=== PATIENT | male | born 1960 | race Caucasian/White ===

== ENCOUNTER 2018-06-26 15:02 | Emergency (ER) | payer BC ==
--- OUTSIDE RECORDS SUMMARY | 2018-06-26 18:05 | XMS REPORT ---
:1960 External Reference #:[id number] Author Organization [facility] Address [address] [place] [address] Phone [phone] Care Team Providers Name Role Phone Dipesh Mead MD Care Team Information Slip Laster Unavailable Dipesh Mead MD Primary Care Physician Unavailable Payers Type Date Identification Numbers Payment Provider Subscriber Commercial Effective: Policy Number: [id number] [place] Plan Bobby Jasso 2013 PayID: [id number] [address] [place] [address] Problems Date Description Provider Status Onset: 05/23/2012 Arthralgia of the ankle and/or foot Mando Montesinos M.D. Active Onset: 07/08/2011 Head and neck swelling Dipesh Mead M.D. Active Social History Type Date Description Comments Smoking Patient has never smoked Allergies, Adverse Reactions, Alerts Date Description Reaction Status Severity Comments 07/08/2011 NKDA active Medications Medication Date Status Form Strength Qnty SIG Indications Ordering Provider Augmentin 06/24 Active Tablets 500-125mg 30tab 1 by mouth R59.0 Rachel Velasquez /2017 s three Sregio EAR SPECIALIST times a day Diltiazem HCL ER 10/20 Active Caps ER 60mg 1 by mouth Dipesh Mitchell /2015 12HR chayo Becerra M.DVanessa daily Amlodipine 06/23 Active Tablets 10mg 1 by mouth [facility] every day [facility] Pradaxa 05/23 Active Capsules 150mg take 1 capsule by Medicine mouth 2 Associates times a [facility] day Metoprolol 05/23 Active Tablets 200mg 1 po qd Family Succinate ER ER 24HR [facility] Lisinopril 05/23 Active Tablets 40mg 1 po qd [facility] Furosemide 05/23 Active Tablets 20mg 1 po qd [facility] Klor-Con M20 Active Tablets 20Meq 1 by mouth Unknown /0000 ER every day Arthritis Pain Active Tablets 650mg 2 tablets Unknown Relief /0000 ER Am Fish Oil Active Capsules 1000mg take one Unknown /0000 capsule by mouth every day (heart health) Amoxicillin 02/03 Hx Tablets 500mg 20tab 1 by mouth Dipesh Mitchell /2017 s twice a Alyce - gabriela M.Karla 06/24 Doxycycline 08/08 Hx Tablets 100mg 2tabs take 2 Dipesh Mitchell Hymurali Pills Camron Mead Together M.Karla 09/23 Azithromycin 11/28 Hx Tablets 250mg 6tabs 2 by mouth x 1 then Anibal, - 1 by mouth Afnp-C 12/03 every x 4 more days Doxycycline 08/04 Hx Tablets 100mg 2tabs 2 by mouth E906.4 Avril murali x 1 dose Camron Ruiz-C 08/07 Amoxicillin 06/23 Hx Tablets 500mg 30tab 1 three 465.8 s times a Joseph - day x 10 Afnp-C Mouthwash/Gargle 09/08 Hx Liquid Dipesh Mitchell Camron Mead M.D. 10/20 Amoxicillin 08/30 Hx Tablets 500mg 14tab 1 po bid Dipesh Mitchell s Camron Mead M.D. 09/08 Work Excuse 05/27 Hx unable to Dipesh Mitchell work Camron Mead M.D. 08/30 can return Friday Amlodipine 05/23 Hx Tablets 5mg 1 / po [facility] qd [facility] 06/23 [facility] Indomethacin 05/23 Hx Capsules 25mg 30cap take one 719.47 Mando Escobar s capsule by Camron Montesinos M.Karla 08/30 times daily as needed for pain with food Cipro 03/07 Hx Tablets 500mg 14tab 1 po bid 787.91 Meghan s for 7 days Camron Ku 07/08 Work Note 03/07 Hx Bobby 787.91 was seen [place], Camron by nv [employer] 07/08 today illness and may not return to work until Friday, 6\\6\\ Topicort 08/14 Hx Cream 0.25% 30uni rub in Dipesh JVanessa ts sparingly Alyce, - bid prn M.D. 07/08 Off Work 2 Days. 10/02 Hx , 724.2 Jessica L. /200810/03/09 Camron Boone M.D. 08/14 dx: /2009 Low back Pain. Return on 10/04/09. Robitussin A-C 12/12 Hx 8Oz 1-2 tsp po 487.1 q4h prn Camron Ku cough [employer] 10/02 Motrin 02/16 Hx Tablets 600mg 90tab 1 po tid Dipesh Mitchell /2007 s with meals Camron Mead.Karla 10/02 Lomotil 09/09 Hx Tablets 2.5mg;0.0 50tab 1-2 po Dipesh Mitchell /2005 25 mg s q4hr prn Camron Mead Diarrhea M.DVanessa 03/17 No More /2006 Than 6 A Day Work Excuse 09/09 Hx unable to Dipesh Mitchell /2005 work Alyce - seen in M.D. 03/17 may return to work friday09/12/06 Ibuprofen 05/13 Hx Tablets 600mg 90tab 1 po q8 Radha s hours prn johnathon Savage, - with food M.D. 06/10 Out Of Work 05/13 Hx seen by MD Garcia /200505/13/06 for johnathon Savage, - work M.D. 09/09 related injury, needs to be out of work until 05/17/06 Work Note 12/17 Hx Patient Dipesh Mitchell /2005 Has Flat Alyce - Feet Needs M.D. 01/31 Good Arch Support With Sneakers AT Work Amoxicillin 12/17 Hx Capsules 250mg 30cap 1 PO tid Dipesh Mitchell /2005 Camron Vee M.D. 01/31 Hydrochlorothiazi 09/26 Hx 25mg 30uni 1 po qd Dipesh puentes Camron Ochoa M.D. 05/23 Hydrochlorothiazi 10/18 Hx 12.5mg 30uni 1 po qd Dipesh puentes Camron Ochoa M.D. 09/26 Clarinex 10/18 Hx 5mg 30uni 1 qd prn Radha Camron Muhammad M.D. 07/08 Nasonex 04/23 Hx 50mcg 1unit 2 sprays s Camron Torres nostril qd Afmeera-C 05/13 Out Of Work Until 03/18 Hx Out Of Work [place], - 6\\8\\02 And [employer]ER 05/04 6\\9\\02 Due To Illness. Return To Work 03/16 Hx Was Seen In This Camron Ruiz [facility] Essie-C 03/17 Today ;February Return To Work Work Excuse 09/15 Hx Unable To Dipesh Mitchell /2000 Work From Alyce - 09/14/01 Mera 05/04 Thr09/16/01 Due Ao Medical Reasons Celebrex 08/14 Hx Tabs 100mg 0tabs 1 po bid prn [facility] 09/26 Of Ventolin 04/17 Hx 1unit 2 Puffs Dipesh Mitchell /1997 s Camron Rodrigues M.D. 08/14 Vancenase Aq DS 03/27 Hx 1unit 2 [place] qd Dipesh Mitchell /1997 s Camron Odom M.D. 08/14 Norvasc 11/02 Hx 10mg 30uni 1 po qd Dipesh Mitchell /1997 Camron Ochoa M.D. 05/23 Ludy 05/24 Hx 60mg 60uni 1 po bid Dipesh Mitchell /1996 Camron Harris M.D. 10/18 Beneflex Hx 1 qd Unknown /0000 - 08/08 Medications Administered in Office Medication Date Status Form Strength Qnty SIG Indications Ordering Provider Injection 11/08/ Administered Injection Sam Mitchell Subcutaneous Or Mario Ayala M.D. Immunizations CPT Code Status Date Vaccine Lot # [id number] Given 08/08/2017 Influenza Vac, Quadrivalent, Slit Virus, Im [id number] Given 06/10/2007 Tetanus And Diptheria Adult Preservative Free [id number] >[id number] Vital Signs Date Vital Result Comment 06/26/2018 BP Systolic 122 mmHg BP Diastolic 80 mmHg Heart Rate 72 /min Body Temperature 97.7 F Height 72.5 inches 6'0.50" 06/24/2018 BP Systolic 142 mmHg BP Diastolic 80 mmHg Heart Rate 60 /min Body Temperature 97.9 F Respiratory Rate 16 /min Height 72.5 inches 6'0.50" Weight 199.00 lb BMI (Body Mass Index) 26.6 kg/m2 02/03/2018 BP Systolic 140 mmHg BP Diastolic 88 mmHg Heart Rate 84 /min Body Temperature 97.3 F Height 72.5 inches 6'0.50" Weight 195.00 lb BMI (Body Mass Index) 26.1 kg/m2 09/23/2017 BP Systolic 132 mmHg BP Diastolic 80 mmHg Heart Rate 68 /min Body Temperature 97.9 F Height 72.5 inches 6'0.50" Weight 197.00 lb BMI (Body Mass Index) 26.3 kg/m2 08/08/2017 BP Systolic 120 mmHg BP Diastolic 80 mmHg Heart Rate 56 /min Body Temperature 97.9 F Height 72.5 inches 6'0.50" Weight 199.00 lb BMI (Body Mass Index) 26.6 kg/m2 10/20/2015 BP Systolic 122 mmHg BP Diastolic 64 mmHg Heart Rate 70 /min Body Temperature 97.9 F Respiratory Rate 18 /min Height 72.5 inches 6'0.50" Weight 212.00 lb BMI (Body Mass Index) 28.4 kg/m2 11/28/2014 BP Systolic 110 mmHg BP Diastolic 80 mmHg Heart Rate 68 /min irr Body Temperature 98.5 F Respiratory Rate 18 /min Height 72.5 inches 6'0.50" Weight 212.00 lb BMI (Body Mass Index) 28.4 kg/m2 08/18/2014 BP Systolic 124 mmHg BP Diastolic 92 mmHg Heart Rate 68 /min irr Body Temperature 97.5 F Respiratory Rate 16 /min Height 72.5 inches 6'0.50" Weight 212.00 lb BMI (Body Mass Index) 28.4 kg/m2 08/04/2014 BP Systolic 110 mmHg BP Diastolic 80 mmHg Heart Rate 80 /min Body Temperature 97.9 F Respiratory Rate 16 /min Height 72.5 inches 6'0.50" Weight 212.00 lb BMI (Body Mass Index) 28.4 kg/m2 06/23/2014 BP Systolic 110 mmHg BP Diastolic 80 mmHg Heart Rate 64 /min Body Temperature 98.1 F Respiratory Rate 18 /min Height 72.5 inches 6'0.50" Weight 216.00 lb BMI (Body Mass Index) 28.9 kg/m2 09/08/2013 BP Systolic 122 mmHg BP Diastolic 80 mmHg Heart Rate 70 /min Body Temperature 98.5 F Respiratory Rate 18 /min Height 72.5 inches 6'0.50" Weight 220.00 lb BMI (Body Mass Index) 29.4 kg/m2 08/30/2013 BP Systolic 126 mmHg BP Diastolic 80 mmHg Heart Rate 68 /min Body Temperature 99.7 F Respiratory Rate 18 /min Height 72.5 inches 6'0.50" Weight 222.00 lb BMI (Body Mass Index) 29.7 kg/m2 05/27/2012 BP Systolic 160 mmHg BP Diastolic 100 mmHg Heart Rate 68 /min Body Temperature 97.5 F Height 72.5 inches 6'0.50" Weight 215.00 lb BMI (Body Mass Index) 28.8 kg/m2 05/23/2012 BP Systolic 144 mmHg BP Diastolic 88 mmHg Heart Rate 72 /min Body Temperature 97.8 F Respiratory Rate 16 /min Height 72.5 inches 6'0.50" Weight 216.00 lb BMI (Body Mass Index) 28.9 kg/m2 07/08/2011 BP Systolic 118 mmHg BP Diastolic 70 mmHg Heart Rate 68 /min Body Temperature 98.0 F Height 72.5 inches 6'0.50" Weight 224.00 lb BMI (Body Mass Index) 30.0 kg/m2 03/07/2011 BP Systolic 124 mmHg BP Diastolic 80 mmHg Heart Rate 76 /min Body Temperature 97.9 F Height 72.5 inches 6'0.50" Weight 221.00 lb BMI (Body Mass Index) 29.6 kg/m2 08/14/2010 BP Systolic 142 mmHg BP Diastolic 94 mmHg Heart Rate 88 /min Height 72.5 inches 6'0.50" Weight 229.00 lb BMI (Body Mass Index) 30.6 kg/m2 10/02/2009 BP Systolic 160 mmHg BP Diastolic 90 mmHg Heart Rate 88 /min Weight 225.00 lb 12/19/2008 BP Systolic 120 mmHg BP Diastolic 80 mmHg Heart Rate 80 /min Body Temperature 98.2 F Weight 225.00 lb 12/15/2008 BP Systolic 142 mmHg BP Diastolic 80 mmHg Heart Rate 80 /min Body Temperature 98.3 F Weight 228.00 lb 12/12/2008 BP Systolic 138 mmHg BP Diastolic 80 mmHg Heart Rate 88 /min Body Temperature 100.4 F Weight 228.00 lb 02/17/2008 BP Systolic 126 mmHg BP Diastolic 80 mmHg Heart Rate 84 /min Height 72.5 inches 6'0.50" Weight 222.00 lb BMI (Body Mass Index) 29.7 kg/m2 06/10/2007 BP Systolic 136 mmHg BP Diastolic 80 mmHg Heart Rate 64 /min Height 72.5 inches 6'0.50" Weight 223.00 lb BMI (Body Mass Index) 29.8 kg/m2 09/09/2006 BP Systolic 128 mmHg BP Diastolic 86 mmHg Heart Rate 84 /min Body Temperature 98.4 F Height 72.5 inches 6'0.50" Weight 222.00 lb BMI (Body Mass Index) 29.7 kg/m2 06/25/2006 BP Systolic 128 mmHg BP Diastolic 86 mmHg Heart Rate 84 /min Height 72.5 inches 6'0.50" Weight 227.00 lb BMI (Body Mass Index) 30.4 kg/m2 06/04/2006 BP Systolic 140 mmHg BP Diastolic 82 mmHg Heart Rate 72 /min Height 72.5 inches 6'0.50" Weight 227.00 lb BMI (Body Mass Index) 30.4 kg/m2 05/13/2006 BP Systolic 154 mmHg BP Diastolic 88 mmHg Heart Rate 80 /min Height 72.5 inches 6'0.50" Weight 227.00 lb BMI (Body Mass Index) 30.4 kg/m2 12/17/2005 BP Systolic 140 mmHg BP Diastolic 88 mmHg Heart Rate 82 /min Height 72.5 inches 6'0.50" Weight 220.00 lb BMI (Body Mass Index) 29.4 kg/m2 05/02/2005 BP Systolic 130 mmHg BP Diastolic 76 mmHg Heart Rate 79 /min Body Temperature 99.0 F Height 72.5 inches 6'0.50" Weight 228.00 lb BMI (Body Mass Index) 30.5 kg/m2 01/02/2005 BP Systolic 130 mmHg BP Diastolic 88 mmHg Heart Rate 76 /min Height 72.5 inches 6'0.50" Weight 231.00 lb BMI (Body Mass Index) 30.9 kg/m2 11/07/2004 BP Systolic 140 mmHg BP Diastolic 96 mmHg Heart Rate 76 /min Height 72.5 inches 6'0.50" Weight 227.00 lb BMI (Body Mass Index) 30.4 kg/m2 09/26/2004 BP Systolic 140 mmHg BP Diastolic 82 mmHg Heart Rate 92 /min Height 72.5 inches 6'0.50" Weight 230.00 lb BMI (Body Mass Index) 30.8 kg/m2 10/18/2003 BP Systolic 142 mmHg BP Diastolic 88 mmHg Heart Rate 72 /min Height 72.5 inches 6'0.50" Weight 221.00 lb BMI (Body Mass Index) 29.6 kg/m2 11/08/2002 BP Systolic 124 mmHg BP Diastolic 70 mmHg Heart Rate 103.1 /min Respiratory Rate 88 /min Height 72.5 inches 6'0.50" Weight 222.00 lb BMI (Body Mass Index) 30.1 kg/m2 07/14/2002 BP Systolic 136 mmHg BP Diastolic 80 mmHg Heart Rate 72 /min Body Temperature 98.3 F Height 72.5 inches 6'0.50" Weight 228.00 lb BMI (Body Mass Index) 30.9 kg/m2 Right Visual Acuity Distance 20/20 Left Visual Acuity Distance 20/20 05/04/2002 BP Systolic 120 mmHg LG Cuff BP Diastolic 80 mmHg LG Cuff Heart Rate 72 /min Height 72.5 inches 6'0.50" Weight 226.00 lb BMI (Body Mass Index) 30.6 kg/m2 03/16/2002 BP Systolic 140 mmHg BP Diastolic 88 mmHg Heart Rate 80 /min Body Temperature 98.7 F Height 72.5 inches 6'0.50" Weight 221.00 lb BMI (Body Mass Index) 30.0 kg/m2 08/14/2001 BP Systolic 126 mmHg LG Cuff BP Diastolic 80 mmHg LG Cuff Heart Rate 76 /min Height 72.5 inches 6'0.50" Weight 231.50 lb BMI (Body Mass Index) 31.4 kg/m2 12/23/2000 BP Systolic 148 mmHg BP Diastolic 88 mmHg Heart Rate 80 /min Body Temperature 99.5 F Height 72.5 inches 6'0.50" Weight 216.50 lb BMI (Body Mass Index) 29.4 kg/m2 06/18/2000 BP Systolic 136 mmHg BP Diastolic 90 mmHg Heart Rate 80 /min Body Temperature 96.6 F Height 72.5 inches 6'0.50" Weight 220.00 lb BMI (Body Mass Index) 29.8 kg/m2 Right Visual Acuity Distance 20/20 Left Visual Acuity Distance 20/20 12/03/1999 BP Systolic 130 mmHg LG Cuff BP Diastolic 90 mmHg LG Cuff Height 72 inches 6'0" Weight 226.00 lb BMI (Body Mass Index) 30.6 kg/m2 06/26/1999 BP Systolic 118 mmHg LG Cuff BP Diastolic 90 mmHg LG Cuff Height 72 inches 6'0" 05/19/1999 BP Systolic 140 mmHg BP Diastolic 92 mmHg Height 72 inches 6'0" Weight 220.00 lb 05/08/1999 BP Systolic 136 mmHg LG Cuff BP Diastolic 90 mmHg LG Cuff Height 72 inches 6'0" Weight 217.00 lb 04/17/1998 BP Systolic 132 mmHg LG Cuff BP Diastolic 90 mmHg LG Cuff Body Temperature 97.8 F Height 72 inches 6'0" Weight 214.00 lb Results Test Date Test Result H/L Range Note Laboratory test finding 01/16/2018 PSA Screening 0.785 ng/mL 0-4.0 1 Laboratory test finding 12/29/2017 Surgical Pathology SEE RESULT BELOW 2 Metabolic Panel (14), 09/23/2017 Glucose, Serum 67 mg/dL 65-99 3 Comprehensive BUN 25 mg/dL High 6-24 3 Creatinine, Serum 1.37 mg/dL High 0.76-1.27 3 eGFR If NonAfricn Am 57 mL/min/1.73 Low >59 3 eGFR If Africn Am 66 mL/min/1.73 >59 3 BUN/Creatinine Ratio 18 9-20 3 Sodium, Serum 141 mmol/L 134-144 3 Potassium, Serum 4.2 mmol/L 3.5-5.2 3 Chloride, Serum 102 mmol/L 96-106 3 Carbon Dioxide, Total 24 mmol/L 18-29 3 Calcium, Serum 8.8 mg/dL 8.7-10.2 3 Protein, Total, Serum 6.7 g/dL 6.0-8.5 3 Albumin, Serum 4.3 g/dL 3.5-5.5 3 Globulin, Total 2.4 g/dL 1.5-4.5 3 A/G Ratio 1.8 1.2-2.2 3 Bilirubin, Total 0.2 mg/dL 0.0-1.2 3 Alkaline Phosphatase, S 97 IU/L 39-117 3 Ast (Sgot) 26 IU/L 0-40 3 Alt (SGPT) 28 IU/L 0-44 3 CBC Electronic ([facility]) 09/23/2017 WBC 3.4 Low 3.6-9.6 RBC 4.88 3.90-5.70 Hemoglobin (Fma/CMC/CTX) 14.6 g/dL 12.1 - 17.2 Hematocrit (Fma/CMC/CTX) 43.1 % 36.1 - 50.3 Platelets 175 10^3/ul 150-400 Lymph% 21.3 % 17.0-48.0 Mixed% 4.7 Neutrophils % 74.0 Mean Corpuscular Vol 88 82.2-97.4 Mean Corpuscular Hemoglobin 29.9 27.6-33.3 Mean Corpuscular Hemo Concen 33.9 32.0-36.0 RDW 14.4 High 11.6-13.7 Mean Platelet Volume 7.7 5.5-11.0 Basic Metabolic Panel 05/05/2017 Sodium 138 mmol/L 133-145 Potassium 4.4 mmol/L 3.5-5.0 Chloride 108 mmol/L 101-111 Co2 Carbon Dioxide 27 mmol/L 22-32 Anion Gap 3 mmol/L 2-11 Glucose 86 mg/dL 70-100 Blood Urea Nitrogen 18 mg/dL 6-24 Creatinine 1.01 mg/dL 0.67-1.17 BUN/Creatinine Ratio 17.8 8-20 Calcium 9.4 mg/dL 8.6-10.3 Egfr Non- 76.4 >60 Egfr 98.3 >60 4 Laboratory test finding 01/08/2017 PSA Screening 0.957 ng/mL 0-4.0 5 Basic Metabolic Panel 03/14/2014 Sodium 137 mmol/L 133-145 Potassium 3.8 mmol/L 3.7-5.6 Chloride 104 mmol/L 101-111 Co2 Carbon Dioxide 29 mmol/L 22-32 Anion Gap 4 mmol/L 2-11 Glucose 91 mg/dL 70-100 Blood Urea Nitrogen 15 mg/dL 6-24 Creatinine 0.91 mg/dL 0.67-1.17 BUN/Creatinine Ratio 16.5 8-20 Calcium 9.1 mg/dL 8.6-10.3 Egfr Non- 87.2 >60 Egfr 112.1 >60 6 Laboratory test finding 12/09/2013 PSA Diagnostic 0.869 ng/mL 0-4.0 7 Laboratory test finding 08/30/2013 Quickstrep neg Negative CBC No Diff 12/16/2012 White Blood Count 5.4 10^3/uL 4.8-10.8 Red Blood Count 5.25 10^6/uL 4.0-5.4 Hemoglobin 15.4 g/dL 14.0-18.0 Hematocrit 46 % 42-52 Mean Corpuscular Volume 87 fL 80-94 Mean Corpuscular Hemoglobin 29 pg 27-31 Mean Corpuscular HGB Conc 34 g/dL 31-36 Red Cell Distribution Width 14 % 10.5-15 Platelet Count 207 10^3/uL 150-450 Mean Platelet Volume 8 um3 7.4-10.4 Basic Metabolic Panel 12/16/2012 Sodium 143 mmol/L 133-145 Potassium 3.9 mmol/L 3.5-5.0 Chloride 106 mmol/L 101-111 Co2 Carbon Dioxide 25.0 mmol/L 22-32 Anion Gap 12.0 mmol/L High 2-11 Glucose 92 mg/dL 70-100 Blood Urea Nitrogen 12 mg/dL 6-24 Creatinine 0.90 mg/dL 0.50-1.40 BUN/Creatinine Ratio 13.3 8-20 Calcium 9.7 mg/dL 8.1-9.9 Egfr Non- 88.6 >60 Egfr 114.0 >60 8 Laboratory test finding 12/16/2012 Magnesium 2.4 mg/dL 1.7-2.6 TSH (Thyroid Stimulating Horm) 1.28 miu/mL 0.34-5.60 Uric Acid 24 HR Urine 05/25/2012 Uric Acid, 24 HR 708.4 mg/24hrs 250.0- 750.0 9 Urine Total Volume, 24 Hour 2300 ml/24hrs 9 Laboratory test finding 05/23/2012 Uric Acid 6.2 mg/dL 2.5-9.2 CBC Electronic (Fma) 05/23/2012 WBC 5.0 3.6-9.6 RBC 4.93 3.90-5.70 Hemoglobin (Fma/CMC/CTX) 13.7 g/dL 12.1 - 17.2 Hematocrit (Fma/CMC/CTX) 42.9 % 36.1 - 50.3 Platelets 242 10^3/ul 150-400 Lymph% 11.9 Low 20.5-51.1 Mixed% 3.5 Neutrophils % 84.6 Mean Corpuscular Vol 87 82.2-97.4 Mean Corpuscular Hemoglobin 27.7 27.6-33.3 Mean Corpuscular Hemo Concen 32.0 32.0-36.0 RDW 14.0 High 11.6-13.7 Mean Platelet Volume 7.1 6.5-11.0 Laboratory test finding 05/23/2012 Sed Rate (Fma/CMC/Centrex) 4 mm Basic Metabolic Panel 10/08/2011 Sodium 138 mmol/L 135-145 Potassium 4.1 mmol/L 3.5-5.0 Chloride 105 mmol/L 101-111 Co2 (Carbon Dioxide) 28.0 mmol/L 22-32 Anion Gap 5.0 mmol/L 2-11 10 Glucose 101 mg/dL High 70-100 BUN 17 mg/dL 6-24 Creatinine 1.0 mg/dL 0.50-1.40 One Over Creatinine 1.00 BUN/Creatinine Ratio 17.0 8-20 Calcium 9.2 mg/dL 8.1-9.9 eGFR Non- 78.8 > 60 eGFR 101.3 > 60 11 Basic Metabolic Panel 09/16/2011 Sodium 136 mmol/L 135-145 12 Potassium 3.9 mmol/L 3.5-5.0 12 Chloride 104 mmol/L 101-111 12 Co2 (Carbon Dioxide) 28.0 mmol/L 22-32 12 Anion Gap 4.0 mmol/L 2-11 12, 13 Glucose 114 mg/dL High 70-100 12 BUN 22 mg/dL 6-24 12 Creatinine 1.2 mg/dL 0.50-1.40 12 One Over Creatinine 0.83 12 BUN/Creatinine Ratio 18.3 8-20 12 Calcium 8.9 mg/dL 8.1-9.9 12 eGFR Non- 64.1 > 60 12 eGFR 82.4 > 60 12, 14 MRSA/Vre Screen 09/11/2011 M <SEE 15 NOTE> CBC No Diff 09/11/2011 White Blood 12.7 CUMM High 4.8-10.8 Count Red Cell Count 4.99 CUMM 4.6-6.2 Hemoglobin 14.4 g/dL 14.0-18.0 Hematocrit 43 % 42-52 Mean Corpuscular Volume 86 um3 80-94 Mean Corpuscular Hemoglob 29 pg 27-31 Mean Corpuscular HGB Cone 34 g/dL 32-36 Redcell Distribution WDTH 15 % 10.5-15 Platelet Count 221 CUMM 150-450 Mean Platelet Volume 9.2 um3 7.4-10.4 Basic Metabolic Panel 09/11/2011 Sodium 140 mmol/L 135-145 Potassium 3.9 mmol/L 3.5-5.0 Chloride 110 mmol/L 101-111 Co2 (Carbon Dioxide) 21.0 mmol/L Low 22-32 Anion Gap 9.0 mmol/L 2-11 16 Glucose 107 mg/dL High 70-100 BUN 16 mg/dL 6-24 Creatinine 1.0 mg/dL 0.50-1.40 One Over Creatinine 1.00 BUN/Creatinine Ratio 16.0 8-20 Calcium 8.9 mg/dL 8.1-9.9 eGFR Non- 79.1 > 60 eGFR 101.7 > 60 17 Laboratory test finding 09/11/2011 Magnesium 2.2 mg/dL 1.7-2.6 Troponin-I 0.02 NG/ML 0-0.06 18 TSH 1.44 MIU/ML 0.34-5.60 Urinalysis 06/26/2011 Ua Color YELLOW Yellow Appearance-Urine CLEAR Clear Specific [place]-Ur 1.009 Low 1.010-1.030 Esterase-Urine NEGATIVE Negative Nitrite NEGATIVE Negative [id number] NEGATIVE Negative Protein-Urine NEGATIVE Negative PH-Urine 5.5 5-9 Blood-Urine NEGATIVE Negative Ketones-Urine NEGATIVE Negative Bilirubin-Ur NEGATIVE Negative Glucose-Urine NEGATIVE Negative Egfr (Calculated) 08/15/2010 Estimated GFR (CALCULATED) 19 Egfr >60 19, 20 Egfr, -[place] >60 19, 21 Lipid Panel 08/15/2010 Cholesterol, Total 177 mg/dL <200 19 Triglycerides 97 mg/dL <150 19 HDL Cholesterol 30 mg/dL Low 40-60 19 Chol/HDL Cholesterol 5.9 19, 22 LDL Cholesterol, Calc. 128 mg/dL 19, 23 LDL/HDL Cholesterol 4.3 19, 24 Comprehensive Metabolic 08/15/2010 Glucose 98 mg/dL 70-100 19 BUN 27 mg/dL High 5-21 19 Creatinine, Serum 0.91 mg/dL 0.60-1.30 19 Sodium 138 mmol/L 136-146 19 Potassium 4.0 mmol/L 3.5-5.3 19 Chloride 105 mmol/L 98-110 19 Carbon Dioxide 28 mmol/L 20-32 19 Albumin 4.6 g/dL 3.5-4.7 19 Protein, Total 7.2 g/dL 6.4-8.3 19 Calcium 9.4 mg/dL 8.4-10.4 19 Alkaline Phosphatase 94 U/L 10-118 19 Sgot (Ast) 17 U/L 3-40 19 SGPT (Alt) 21 U/L 7-50 19 Bilirubin, Total 0.50 mg/dL 0.30-1.20 19 Laboratory test finding 12/12/2008 Flu A&B POSITIVE Negative CBC 06/17/2007 WBC 4.1 x103 Low 4.3-10.9 25 RBC 5.24 x106 4.70-6.20 25 Hemoglobin 15.0 g/dL 13.0-17.0 25 Hematocrit 44.7 % 39.0-50.0 25 MCV 85.3 fl 82.0-98.0 25 MCH 28.6 pg 27.5-33.5 25 MCHC 33.6 g/dL 25 RDW 14.3 % 11.5-14.5 25 Platelet Count 225 x103 130-400 25 MPV 11.1 fl High 6.5-10.5 25 Segmented Neutrophils 71.4 % 44.0-74.0 25 Lymphocytes 17.2 % 15.0-45.0 25 Monocytes 8.4 % 2.0-13.0 25 Eosinophils 2.5 % 0.0-6.0 25 Basophils 0.5 % 0.0-2.0 25 Neutrophil Absolute 2.9 x103 1.4-7.0 25 Lymphocytes Absolute 0.7 x103 Low 1.0-3.4 25 Monocyte Absolute 0.3 x103 0.2-1.0 25 Eosinophil Absolute 0.1 x103 0.0-0.5 25 Basophil Absolute 0.0 x103 0.0-0.2 25 [facility] Metabolic 06/17/2007 Glucose 98 mg/dL 70-100 25 BUN 17 mg/dL 5-21 25 Creatinine, Serum 1.0 mg/dL 0.6-1.5 25 Sodium 142 mmol/L 136-146 25 Potassium 3.8 mmol/L 3.5-5.3 25 Chloride 106 mmol/L 98-110 25 Carbon Dioxide 27 mmol/L 20-32 25 Albumin 4.6 g/dL 3.5-4.7 25 Protein, Total 7.3 g/dL 6.4-8.2 25 Calcium 9.4 mg/dL 8.4-10.4 25 Alkaline Phosphatase 93 U/L 10-118 25 Sgot (Ast) 17 U/L 3-40 25 SGPT (Alt) 20 U/L 7-50 25 Bilirubin, Total 0.40 mg/dL 0.30-1.20 25 Lipid Profile 06/17/2007 Cholesterol, Total 179 mg/dL 120-200 25, 26 HDL Cholesterol 30 mg/dL Low 40-60 25 LDL Cholesterol, Calc. 127 mg/dL <130 25, 27 Triglycerides 110 mg/dL 25, 28 LDL/HDL Cholesterol 4.2 25, 29 Chol/HDL Cholesterol 6.0 25, 30 Laboratory test finding 06/17/2007 GFR (Calculated) >60 25, 31 Ua - Non Micro (Fma) 06/10/2007 Appearance CLEAR Color YELLOW Glucose, Urine (Fma/CMC/CTX) NEG Bilirubin NEG Ketones TRACE SP Grav >=1.030 Blood NEG PH 5.0 Protein SSA NEG Urobil 0.2 Nitrite NEG Leukocytes (Fma/CMC/Centrex) NEG Comprehensive Metabolic 12/26/2005 Glucose 92 mg/dL 70-100 32 BUN 21 mg/dL 5-21 32 Creatinine, Serum 1.0 mg/dL 0.6-1.5 32 Sodium 142 mmol/L 136-146 32 Potassium 4.8 mmol/L 3.5-5.3 32 Chloride 108 mmol/L 98-110 32 Carbon Dioxide 29 mmol/L 20-32 32 Albumin 4.5 g/dL 3.5-4.7 32 Protein, Total 7.1 g/dL 6.4-8.2 32 Calcium 9.4 mg/dL 8.4-10.4 32 Alkaline Phosphatase 102 U/L 10-118 32 Sgot (Ast) 16 U/L 3-30 32 SGPT (Alt) 20 U/L 7-40 32 Bilirubin, Total 0.49 mg/dL 0.30-1.20 32 Lipid Profile 12/26/2005 Cholesterol, Total 157 mg/dL 120-200 32, 33 HDL Cholesterol 26 mg/dL Low 40-60 32 LDL Cholesterol, Calc. 111 mg/dL <130 32, 34 Triglycerides 102 mg/dL 32, 35 LDL/HDL Cholesterol 4.3 32, 36 Chol/HDL Cholesterol 6.0 32, 37 Laboratory test finding 12/26/2005 PSA 1.1 ng/ml 0.0-4.0 32, 38 CBC 12/26/2005 WBC 5.1 x103 4.3-10.9 32 RBC 4.93 x106 4.20-5.60 32 Hemoglobin 14.3 g/dL 13.0-17.0 32 Hematocrit 41.3 % 39.0-50.0 32 MCV 83.8 fl 82.0-98.0 32 MCH 28.9 pg 27.5-33.5 32 MCHC 34.5 g/dL 32.0-36.0 32 RDW 14.5 % 11.5-14.5 32 Platelet Count 253 x103 130-400 32 MPV 8.5 fl 6.5-10.5 32 Segmented Neutrophils 76.9 % High 44.0-74.0 32 Lymphocytes 13.9 % Low 15.0-45.0 32 Monocytes 6.8 % 2.0-13.0 32 Eosinophils 2.2 % 0.0-6.0 32 Basophils 0.2 % 0.0-2.0 32 Neutrophil Absolute 3.9 x103 1.4-7.0 32 Lymphocytes Absolute 0.7 x103 Low 1.0-3.4 32 Monocyte Absolute 0.3 x103 0.2-1.0 32 Eosinophil Absolute 0.1 x103 0.0-0.5 32 Basophil Absolute 0.0 x103 0.0-0.2 32 Laboratory test finding 12/26/2005 GFR (Calculated) >60 32, 39 Ua - Non Micro (Fma) 12/17/2005 Appearance CLEAR Color LT YELLOW Glucose NEG Bilirubin NEG Ketones NEG SP Grav 1.020 Blood NEG PH 5.0 Protein NEG Urobil 0.2 Nitrite NEG Leukocytes NEG Laboratory test finding 05/03/2005 [facility] [place] Labs BASIC MET PANEL See Image Report Comprehensive Metabolic 01/09/2005 Glucose 91 mg/dL 61-110 BUN 21 mg/dL 5-21 Creatinine, Serum 1.1 mg/dL 0.6-1.5 Sodium 144 mmol/L 136-146 Potassium 4.1 mmol/L 3.5-5.3 Chloride 107 mmol/L 98-107 Carbon Dioxide 27 mmol/L 20-32 Albumin 4.5 g/dL 3.5-4.7 Protein, Total 7.2 g/dL 6.4-8.2 Calcium 9.9 mg/dL 8.4-10.6 Alkaline Phosphatase 93 U/L 10-118 Sgot (Ast) 16 U/L 3-30 SGPT (Alt) 18 U/L 7-40 Bilirubin, Total 0.58 mg/dL 0.30-1.20 Lipid Profile 01/09/2005 Cholesterol, Total 174 mg/dL 120-200 40 HDL Cholesterol 30 mg/dL Low 40-60 LDL Cholesterol, Calc. 115 mg/dL <130 41 Triglycerides 146 mg/dL 42 LDL/HDL Cholesterol 3.8 43 Chol/HDL Cholesterol 5.8 44 Laboratory test finding 01/09/2005 GFR (Calculated) >60 45 Ua - Non Micro ([facility]) 11/08/2002 Appearance HAZY DK. YELLOW 46 Glucose - 46 Bilirubin - 46 Ketones TRACE 46 SP Grav 1.025 46 Blood LARGE 46 PH 5.0 46 Protein SSA 1+ 46 Urobil 0.2 46 Nitrite POSITIVE 46 Leukocytes SMALL 46 Ua - Non Micro ([facility]) 07/14/2002 Appearance CLEAR YELLOW Glucose NEGATIVE Bilirubin NEGATIVE Ketones TRACE SP Grav >=1.030 Blood NEGATIVE PH 5.5 Protein NEGATIVE Urobil 0.2 Nitrite NEGATIVE Leukocytes NEGATIVE Basic Metabolic ([facility] [place]) 06/09/2002 Sodium 140 mmol/L 135-145 Potassium 4.0 3.5-5.0 Chloride 103 mmol/L 95-108 Co2 22.9 21-33 Glucose 104 mg/dL 70-105 BUN 17 6-22 Creatinine 1.4 mg/dL 0.5-1.4 BUN/Creatinin Ratio 12.1 8-20 Calcium 9.2 mg/dL 8.7-10.2 CBC Electronic ([facility] [place]) 06/09/2002 WBC 4.0 Low 4.8-10.8 RBC 5.14 4.6-6.2 Hemoglobin 15.1 g/dL 14.0-18.0 Hematocrit 44 % 42-52 Mean Corpuscular Vol 85 80-94 Mean Corpuscular Hemaglobin 29 27-31 Mean Corpuscular Hemo Concen 34 32-36 RDW 13 10.5-15 Platelets 241 CUMM 150-450 Mean Platelet Volume 8.2 7.4-10.4 Granulocytes 64.8 % 38-83 Lymphocytes 17.6 % Low 20-45 Monocytes 11.2 % High 1-9 Eosinophil 5.4 0-6 Basophil% 1.0 0-2 Abs Lymphs 0.7 Low 1.0-4.8 Abs Mononuclear 0.4 0-0.8 Abs Grans 2.7 1.5-7.7 Abs Eosinophils 0.2 0-0.6 Abs Basophils 0 0-0.2 Comp Met ([facility]) 06/27/2000 Glucose 81 mg/dL 61-113 BUN 17 mg/dL 5-21 Creatinine 0.9 mg/dL 0.6-1.5 Sodium 144 mmol/L 135-146 Potassium 4.7 mmol/L 3.6-5.0 Chloride 106 mmol/L 98-108 Co2 27 mmol/L 23-33 Albumin 4.3 g/dL 3.8-4.6 Protein 7.4 6.2-8.0 Calcium 9.6 mg/dL 8.7-10.3 Alkaline Phosphatase 94 U/L 45-120 Ast (Sgot) 18 U/L 9-43 Alt (SGPT) 30 U/L 11-51 Bilirubin, Total 0.70 mg/dL 0.2-1.30 Lipid Profile ([facility]) 06/27/2000 Cholesterol 171 mg/dL 120-200 HDL-Chol 31 mg/dL Low >35 LDL, Direct 116 mg/dL <130 Triglyceride 118 mg/dL 23-253 LDL/HDL Cholesterol Ratio 3.7 See Detail 47 Cholesterol / HDL Ratio 5.5 See Detail 48 CBC Electronic ([facility]) 06/27/2000 WBC 3.7 x1000 Low 4.3-10.9 RBC 5.24 xMILLION 4.20-5.60 Hemoglobin 15.2 g/dL 13.0-17.0 Hematocrit 45.7 % 39-50 Mean Corpuscular Vol 87.2 FL 82.0-98.0 Mean Corpuscular Hemaglobin 29.1 pg 27.5-33.5 Mean Corpuscular Hemo Concen 33.3 g/dL 32.0-36.0 RDW 13.5 % 11.5-14.5 Platelets 217 x1000 130-400 Mean Platelet Volume 8.0 FL 6.5-10.5 Neutrophils 67.9 % 44.0-74.0 Band 0.0 % 0.0-4.0 Lymphocytes 20.4 % 15-45 Monocytes 6.8 % 2.0-13.0 Eosinophil 3.9 % 0.0-6.0 Basophil% 1.0 % 0.0-2.0 Abs Neutrophils 2.5 x1000 1.4-7.0 Abs Lymphs 0.8 X1000 Low 1.0-3.4 Abs Mononuclear 0.3 X1000 0.2-1.0 Abs Eosinophils 0.1 X1000 0.0-0.5 Abs Basophils 0.0 X1000 0.0-0.20 Ua - Non Micro ([facility]) 06/18/2000 Appearance CLEAR LT YELLOW Glucose - Bilirubin - Ketones - SP Grav 1.025 Blood - PH 6.0 Protein - Urobil 0.2 Nitrite - Leukocytes - 1 Serum levels of PSA measured using the [employer] DXI Hybritech immunoassay should not be interpreted as absolute evidence of the presence or absence of disease. The PSA value should be used in conjunction with other pertinent clinical diagnostic procedures. The values obtained with different assay methods or kits cannot be used interchangeably. 2 SEE RESULT BELOW Name: BOBBY JASSO : [address]: Patricio Gibbs MD Acct: [id number] Unit: [id number] AGE: 57 Location: ENDO Re12/29/17 SEX: M Status: DEP REF SPEC: [id number] LEAH: 12/29/171130 [facility] DR: Patricio Gibbs MD REQ: [id number] RECD: 12/29/173836 STATUS: EVONNE MARIE DR: Dipesh Mead MD _ ORDERED: LEVEL 4 FINAL DIAGNOSIS Colon, cecum, biopsy: -- Hyperplastic polyp. CLINICAL HISTORY Screening, average risk POST-OPERATIVE DIAGNOSIS Colonoscopy to terminal ileum ? biopsy polyp cecum. Conclusions/Plan: 10 years; restart Pradaxa GROSS DESCRIPTION The specimen is received in formalin labeled, Biopsy Cecal Polyp, and consists of a 0.9 x 0.3 x 0.1 cm gomez-pink irregular soft tissue fragment which is submitted entirely in one cassette. Signed (signature on file) Radha Guerin MD 1000 END OF REPORT DEPARTMENT OF PATHOLOGY, [address] [place] [address] Ayad Rosario M.D. Director [facility] # [id number] 3 1SST 4 Because ethnic data is not always readily available, this report includes an eGFR for both -Americans and non- Americans. The National Kidney Disease Education Program (NKDEP) does not endorse the use of the MDRD equation for patients that are not between the ages of 18 and 70, are , have extremes of body size, muscle mass, or nutritional status, or are non- or non-. According to the National Kidney Foundation, irrespective of diagnosis, the stage of the disease is based on the level of kidney function: Stage Description GFR(mL/min/1.73 m(2)) 1 Kidney damage with normal or decreased GFR 90 2 Kidney damage with mild decrease in GFR 60-89 3 Moderate decrease in GFR 30-59 4 Severe decrease in GFR 15-29 5 Kidney failure <15 (or dialysis) 5 Serum levels of PSA measured using the [employer] DXI Hybritech immunoassay should not be interpreted as absolute evidence of the presence or absence of disease. The PSA value should be used in conjunction with other pertinent clinical diagnostic procedures. The values obtained with different assay methods or kits cannot be used interchangeably. 6 Because ethnic data is not always readily available, this report includes an eGFR for both -Americans and non- Americans. The National Kidney Disease Education Program (NKDEP) does not endorse the use of the MDRD equation for patients that are not between the ages of 18 and 70, are , have extremes of body size, muscle mass, or nutritional status, or are non- or non-. According to the National Kidney Foundation, irrespective of diagnosis, the stage of the disease is based on the level of kidney function: Stage Description GFR(mL/min/1.73 m(2)) 1 Kidney damage with normal or decreased GFR 90 2 Kidney damage with mild decrease in GFR 60-89 3 Moderate decrease in GFR 30-59 4 Severe decrease in GFR 15-29 5 Kidney failure <15 (or dialysis) 7 Serum levels of PSA measured using the Coinplug DXI Hybritech immunoassay should not be interpreted as absolute evidence of the presence or absence of disease. The PSA value should be used in conjunction with other pertinent clinical diagnostic procedures. The values obtained with different assay methods or kits cannot be used interchangeably. 8 Because ethnic data is not always readily available, this report includes an eGFR for both -Americans and non- Americans. The National Kidney Disease Education Program (NKDEP) does not endorse the use of the MDRD equation for patients that are not between the ages of 18 and 70, are , have extremes of body size, muscle mass, or nutritional status, or are non- or non-. According to the National Kidney Foundation, irrespective of diagnosis, the stage of the disease is based on the level of kidney function: Stage Description GFR(mL/min/1.73 m(2)) 1 Kidney damage with normal or decreased GFR 90 2 Kidney damage with mild decrease in GFR 60-89 3 Moderate decrease in GFR 30-59 4 Severe decrease in GFR 15-29 5 Kidney failure <15 (or dialysis) 9 1 sterile container with urine; total 2300ml 10 Anion gap measurement may be of limited value in the presence of any alkalosis, especially in a combined acid base disorder. . 11 Because ethnic data is not always readily available, this report includes an eGFR for both -Americans and non- Americans. The National Kidney Disease Education Program (NKDEP) does not endorse the use of the MDRD equation for patients that are not between the ages of 18 and 70, are , have extremes of body size, muscle mass, or nutritional status, or are non- or non-. According to the National Kidney Foundation, irrespective of diagnosis, the stage of the disease is based on the level of kidney function: Stage Description GFR(mL/min/1.73 m(2)) 1 Kidney damage with normal or decreased GFR 90 2 Kidney damage with mild decrease in GFR 60-89 3 Moderate decrease in GFR 30-59 4 Severe decrease in GFR 15-29 5 Kidney failure <15 (or dialysis) 12 FASTING 13 Anion gap measurement may be of limited value in the presence of any alkalosis, especially in a combined acid base disorder. . 14 Because ethnic data is not always readily available, this report includes an eGFR for both -Americans and non- Americans. The National Kidney Disease Education Program (NKDEP) does not endorse the use of the MDRD equation for patients that are not between the ages of 18 and 70, are , have extremes of body size, muscle mass, or nutritional status, or are non- or non-. According to the National Kidney Foundation, irrespective of diagnosis, the stage of the disease is based on the level of kidney function: Stage Description GFR(mL/min/1.73 m(2)) 1 Kidney damage with normal or decreased GFR 90 2 Kidney damage with mild decrease in GFR 60-89 3 Moderate decrease in GFR 30-59 4 Severe decrease in GFR 15-29 5 Kidney failure <15 (or dialysis) 15 RUN DATE: 09/13/11 [facility] NMI LIVE PAGE 1 RUN TIME: 842 Specimen Inquiry RUN USER: INTERFACE Name: BOBBY JASSO Status: DIS IN Re09/11/11 Age/Sex: 50/M Unit#: [id number] Location: ICU : 60 SPEC #: [id number] LEAH: 09/11/11 STATUS: COMP REQ #: [id number] RECD: 09/11/11-[address] [facility] [address]: Celina PARRA,Nomi SOURCE: NOSE ENTR: 09/11/11-[address]: Alyce PARRA,Dipesh [facility]: ORDERED: MRSA/VRE CULT ACT WKST: B 09/13/11 #1 Procedure Result Verified Site > MRSA/VRE CULTURE Final 09/13/11- 842 ML NO MRSA ISOLATED ML - [facility] State Permit #[id number] [address] [place] [id number] DEPARTMENT OF PATHOLOGY, [address] [place] [address] [facility] Permit #[id number] Ayad Rosario M.D. Director Dante Rodriguez M.D. [employer]ence [employer] 16 Anion gap measurement may be of limited value in the presence of any alkalosis, especially in a combined acid base disorder. . 17 Because ethnic data is not always readily available, this report includes an eGFR for both -Americans and non- Americans. The National Kidney Disease Education Program (NKDEP) does not endorse the use of the MDRD equation for patients that are not between the ages of 18 and 70, are , have extremes of body size, muscle mass, or nutritional status, or are non- or non-. According to the National Kidney Foundation, irrespective of diagnosis, the stage of the disease is based on the level of kidney function: Stage Description GFR(mL/min/1.73 m(2)) 1 Kidney damage with normal or decreased GFR 90 2 Kidney damage with mild decrease in GFR 60-89 3 Moderate decrease in GFR 30-59 4 Severe decrease in GFR 15-29 5 Kidney failure <15 (or dialysis) 18 New Reference Range and Interpretation effective 07/09/2002 TnI (ng/ml) INTERPRETATION Less Than 0.06 ng/mL NOT SUPPORTIVE OF DIAGNOSIS OF MO 0.06 - 0.50 ng/ml INDETERMINATE: SUGGEST SERIAL STUDIES IF CLINICALLY INDICATED. Greater than 0.5 ng/mL CONSISTENT WITH DIAGNOSIS OF MO . 19 FASTING; 1 SST 20 >59 mL/min/1.73m2 21 >59 mL/min/1.73m2 Note: Persistent reduction for 3 months or more in an eGFR <60 mL/min/1.73m2 defines CKD. Patients with eGFR values >=60 mL/min/1.73m2 may also have CKD if evidence of persistent proteinuria is present. Additional information may be found at www.kidney.org/professionals/kdoqi. 22 CHOL/HDL Risk Ratio Levels MALE FEMALE 1/2 X Average 3.4 3.3 Average 5.0 4.4 2 X Average 9.5 7.0 3 X Average 24.0 11.0 23 Optimal under 100 mg/dl Near or above Optimal 100 - 129 mg/dl Borderline High 130 - 159 mg/dl High 160 - 189 mg/dl Very High above 190 mg/dl 24 LDL/HDL Risk Ratio Levels MALE FEMALE 1/2 X Average 1.0 1.5 Average 3.6 3.2 2 X Average 6.3 5.0 3 X Average 8.0 6.1 25 FASTING; 1 SST,1 LAV 26 Cholesterol Risk Levels ([facility]) Recommended: under 200 mg/dl Borderline : 200-239 mg/dl High Risk : Above 240 mg/dl 27 The National Cholesterol Education Program recommends the following ranges for LDL Cholesterol: Optimal under 100 mg/dl Near or above Optimal 100 - 129 mg/dl Borderline High 130 - 159 mg/dl High 160 - 189 mg/dl Very High above 190 mg/dl 28 Triglyceride Risk Levels: Normal : <150 mg/dl Borderline : 150-199 mg/dl High : 200-499 mg/dl Very High : >500 mg/dl 29 LDL/HDL Risk Ratio Levels MALE FEMALE 1/2 X Average 1.00 1.47 Average 3.55 3.22 2 X Average 6.25 5.03 3 X Average 7.99 6.14 30 CHOL/HDL Risk Ratio Levels MALE FEMALE 1/2 X Average 3.4 3.3 Average 5.0 4.4 2 X Average 9.5 7.0 3 X Average 24.0 11.0 31 mL/min/1.73m2 . Normal Function or Mild Renal Disease, if clinically at risk: >or=60 Moderately decreased: 30 - 59 Severely decreased: 15 - 29 Renal Failure: <15 . Please note that the MDRD equation requires an additional adjustment for -Americans (multiply the GFR result by 1.210). . Glomerular Filtration Rate (GFR) is estimated based on the MDRD equation, which assumes a steady state for creatinine (Eva Int Med 139/2 137-149, 2003), as recommended by the National Kidney Disease Education Program in conjunction with the National Institutes of Health and the National Kidney Foundation. . Clinical conditions in which it may be necessary to measure GFR by using clearance methods include extremes of age and body size, severe malnutrition or obesity, diseases of skeletal muscle, paraplegia or quadriplegia, vegetarian diet, rapidly changing kidney function, and calculation of the dose of potentially toxic drugs that are excreted by the kidneys. 32 FASTING; 1 LARGE SST, 1 SMALL SST, 1 LAV 33 Cholesterol Risk Levels ([facility]) Recommended: under 200 mg/dl Borderline : 200-239 mg/dl High Risk : Above 240 mg/dl . 34 The National Cholesterol Education Program recommends the following ranges for LDL Cholesterol: Optimal under 100 mg/dl Near or above Optimal 100 - 129 mg/dl Borderline High 130 - 159 mg/dl High 160 - 189 mg/dl Very High above 190 mg/dl . 35 Triglyceride Risk Levels: Normal : <150 mg/dl Borderline : 150-199 mg/dl High : 200-499 mg/dl Very High : >500 mg/dl . 36 LDL/HDL Risk Ratio Levels MALE FEMALE 1/2 X Average 1.00 1.47 Average 3.55 3.22 2 X Average 6.25 5.03 3 X Average 7.99 6.14 . 37 CHOL/HDL Risk Ratio Levels MALE FEMALE 1/2 X Average 3.4 3.3 Average 5.0 4.4 2 X Average 9.5 7.0 3 X Average 24.0 11.0 . 38 . Serum PSA results should be used only in conjunction with information available from the clinical evaluation of the patient and other diagnostic procedures. Values obtained with different assay methods or kits cannot be used interchangeably. Results obtained using [employer] ICMA methodology. . 39 mL/min/1.73m2 . Normal Function or Mild Renal Disease, if clinically at risk: >or=60 Moderately decreased: 30 - 59 Severely decreased: 15 - 29 Renal Failure: <15 . Please note that the MDRD equation requires an additional adjustment for -Americans (multiply the GFR result by 1.210). . Glomerular Filtration Rate (GFR) is estimated based on the MDRD equation, which assumes a steady state for creatinine (Eva Int Med 139/2 137-149, 2003), as recommended by the National Kidney Disease Education Program in conjunction with the National Institutes of Health and the National Kidney Foundation. . Clinical conditions in which it may be necessary to measure GFR by using clearance methods include extremes of age and body size, severe malnutrition or obesity, diseases of skeletal muscle, paraplegia or quadriplegia, vegetarian diet, rapidly changing kidney function, and calculation of the dose of potentially toxic drugs that are excreted by the kidneys. . 40 Cholesterol Risk Levels (NIH) Recommended: under 200 mg/dl Borderline : 200-239 mg/dl High Risk : Above 240 mg/dl . 41 The National Cholesterol Education Program recommends the following ranges for LDL Cholesterol: Optimal under 100 mg/dl Near or above Optimal 100 - 129 mg/dl Borderline High 130 - 159 mg/dl High 160 - 189 mg/dl Very High above 190 mg/dl . 42 Triglyceride Risk Levels: Normal : <150 mg/dl Borderline : 150-199 mg/dl High : 200-499 mg/dl Very High : >500 mg/dl . 43 LDL/HDL Risk Ratio Levels MALE FEMALE 1/2 X Average 1.00 1.47 Average 3.55 3.22 2 X Average 6.25 5.03 3 X Average 7.99 6.14 . 44 CHOL/HDL Risk Ratio Levels MALE FEMALE 1/2 X Average 3.4 3.3 Average 5.0 4.4 2 X Average 9.5 7.0 3 X Average 24.0 11.0 . 45 mL/min/1.73m2 . Normal Function or Mild Renal Disease, if clinically at risk: >or=60 Moderately decreased: 30 - 59 Severely decreased: 15 - 29 Renal Failure: <15 . Please note that the MDRD equation requires an additional adjustment for -Americans (multiply the GFR result by 1.210). . Glomerular Filtration Rate (GFR) is estimated based on the MDRD equation, which assumes a steady state for creatinine (Eva Int Med 139/2 137-149, 2003), as recommended by the National Kidney Disease Education Program in conjunction with the National Institutes of Health and the National Kidney Foundation. . Clinical conditions in which it may be necessary to measure GFR by using clearance methods include extremes of age and body size, severe malnutrition or obesity, diseases of skeletal muscle, paraplegia or quadriplegia, vegetarian diet, rapidly changing kidney function, and calculation of the dose of potentially toxic drugs that are excreted by the kidneys. . 46 NO MICRO- PER DR. RAMSEY 47 LDL/HDL RISK RATIO LEVELS MALE FEMALE 1/2 X AVERAGE 1.0 1.47 AVERAGE 3.55 3.22 2 X AVERAGE 6.25 5.03 3 X AVERAGE 7.99 6.14 48 CHOL/HDL RISK RATIO LEVELS MALE FEMALE 1/2 X AVERAGE 3.4 3.3 AVERAGE 5.0 4.4 2 X AVERAGE 9.5 7.0 3 X AVERAGE 24.0 11.0 Procedures Date CPT Code Description Status Comment 12/29/2017 Colonoscopy Completed 12/17/2005 50089 Electrocardiogram Complete Completed 11/08/2002 69843 Injection Subcutaneous Or Completed DEMEROL 25MG, VISTARIL Intramuscular 12.5MG LA IM RM Encounters Type Date Location Provider CPT E/M Dx Office Visit 06/24/2018 11:30a Main Office Rachel Hill, MEERA [address]47[address] R59.0 G50.1 Office Visit 02/03/2018 1:10p [facility] Dipesh Mead M.D. 60628 J01.90 J20.9 Office Visit 09/23/2017 2:10p [facility] Dipesh Mead M.D. 09941 I48.0 R53.83 Office Visit 08/08/2017 1:10p Main Office Dipesh Mead M.D. 56939 S40.861A W57.xxxA Z23 Office Visit 10/20/2015 11:00a Main Office Dipesh Mead M.D. 67411 I10 I48.0 Office Visit 11/28/2014 11:30a Main Office Laney Luis AlfredoEssie soto-C 81567 466.0 427.31 401.9 Office Visit 08/18/2014 1:30p Main Office Eric Vicente M.D. 61443 881.00 E920.8 Office Visit 08/04/2014 2:30p Main Office Essie Donohue-Rodney 89098 E906.4 912.4 Office Visit 06/23/2014 3:30p Main Office Essie Donohue-Rodney 99277 465.8 Office Visit 09/08/2013 1:40p Main Office Dipesh Mead M.D. 10546 528.00 Office Visit 08/30/2013 1:10p Main Office Dipesh Mead M.D. 93533 462 Office Visit 05/27/2012 5:10p Main Office Dipesh Mead M.D. 04222 719.47 Office Visit 05/23/2012 9:30a Main Office Mando Montesinos M.D. 28017 719.47 Office Visit 07/08/2011 1:40p Main Office Dipesh Mead M.D. 97346 784.2 Office Visit 03/07/2011 11:15a [facility] BARON Lange 60056 787.91 Office Visit 08/14/2010 8:00a [facility] Dipesh Mead M.D. 05823 401.9 Office Visit 10/02/2009 3:20p Main Office Jessica Boone M.D. 42202 724.2 Office Visit 12/19/2008 2:15p Main Office Meghan Ku, [facility] 89419 487.1 Office Visit 12/15/2008 11:00a [facility] Meghan Ku, [facility] 58178 487.1 Office Visit 12/12/2008 6:15p Main Office Meghan Ku, [facility] 56691 487.1 Office Visit 02/17/2008 1:20p Main Office Dipesh Mead M.D. 30362 724.5 Office Visit 06/10/2007 7:20p Main Office Dipesh Mead M.D. 77188 V06.5 V70.0 401.9 Office Visit 09/09/2006 2:00p [facility] Dipesh Mead M.D. 42583 787.91 Office Visit 05/13/2006 8:20p Main Office Radhaashley Moraes, 76044 844.9 M.D. Office Visit 12/17/2005 3:20p Main Office Dipesh Mead M.D. 26983 V70.0 401.9 Office Visit 05/02/2005 8:40p Main Office Mando Montesinos M.D. 22168 553.00 Office Visit 01/02/2005 5:10p Main Office Dipesh Mead M.D. 45126 401.9 Office Visit 11/07/2004 5:10p Main Office Dipesh Mead M.D. 33967 401.9 Office Visit 09/26/2004 6:20p Main Office Dipesh Mead M.D. 15415 401.9 Office Visit 10/18/2003 1:20p [facility] Dipesh Mead M.D. 64042 401.9 995.3 Office Visit 11/08/2002 2:00p [facility] Sam Ramsey M.D. 23147 604.90 Office Visit 07/14/2002 3:20p Main Office Dipesh Mead M.D. 34589 Office Visit 05/04/2002 4:00p [facility] Dipesh Mead M.D. 64409 Office Visit 03/16/2002 4:00p Main Office Taylormeera-Rodney 96760 Office Visit 08/14/2001 3:10p Main Office Dipesh Mead M.D. 83723 Office Visit 12/23/2000 1:10p [facility] Dipesh Mead M.D. 70032 Office Visit 06/18/2000 3:20p Main Office Dipesh Mead M.D. 36342 Plan of Care 06/26/2018 - Leelee Benito, NPG50.1 Atypical facial painComments:I am concerned about possible infection or abscess -- I would like you to be seen in the emergency department for further testing today.R59.0 Localized enlarged lymph nodesAllComments:1. Patient has been queried about patient's goals/ preferences and functional/lifestyle goals at relevant visits. If relevant, describe: Has been discussed, noted above2. Treatment goals as explainedto the patient: see above3. Are there barriers to meeting treatment goals? Yes If Yes, please describe: Barriers include possible insurance limits, disease process, and difficulty with lifestyle changes4. Self-Management goals as described to the patient: Yes, see above As always, we strongly encourage a healthy diet and making physical activity a part of your every day life. If you have questions about how or where to start, please contact the office.
--- OUTSIDE RECORDS SUMMARY | 2018-06-26 18:05 | XMS REPORT ---
:1960 External Reference #:[id number] Author Organization [employer], Address [address] [place] [address] Phone [phone] Care Team Providers Name Role Phone Wes Porras MD Care Team Information Custom Harvester Unavailable Dipesh Mead MD Primary Care Physician Unavailable Payers Type Date Identification Numbers Payment Provider Subscriber Commercial Policy Number: [id number] [facility] Ubaldo Pedersen SR Group Number: [id number] [address] PayID: [id number] [place] [address] Problems Date Description Provider Status Onset: 08/30/2013 Primary cardiomyopathy Jeremie Ring M.D., [facility], Active FASNC Onset: 09/23/2014 Atrial fibrillation Jeremie Ring M.D., [facility], Active FASNC Onset: 05/29/2015 Thoracic Aortic Ectasia Jeremie Ring M.D., [facility], Active FASNC Onset: 11/06/2015 Chronic atrial fibrillation Jeremie Ring M.D., [facility], Active FASNC Onset: 02/12/2016 Essential hypertension Jeremie Ring M.D., [facility], Active FASNC Onset: 05/26/2018 Thoracic aortic ectasia Traveling ECHO 1 Active Social History Type Date Description Comments Marital Status Lives With Lives With Son 2 Occupation Retired Cigarette Use Never Smoked Cigarettes ETOH Use Denies alcohol use Smoking Patient has never smoked Recreational Drug Use Denies Drug Use Daily Caffeine Consumes on average 1 cup of regular coffee per day Exercise Type/Frequency Exercises regularly walking 3-4Xweek Allergies, Adverse Reactions, Alerts Date Description Reaction Status Severity Comments 08/30/2013 NKDA active Medications Medication Date Status Form Strength Qnty SIG Indications Ordering Provider Owen-Willie M20 04/17/ Active Tablets ER 20Meq 60tabs 2 by Jeremie Horne 2017 mouth Ring, every day M.D., [facility], [facility] Diltiazem HCL 12/24/ Active Tablets 90mg 360tab take 90 I48.2 Jeremie Horne 2015 s mg three Ring, times a M.D., day [facility], [facility] Lisinopril 08/30/ Active Tablets 40mg 90tabs 1 tabs by Jeremie Horne 2012 mouth Ring, every day M.D., [facility], [facility] Furosemide 03/08/ Active Tablets 20mg 90tabs 1 tab by Jeremie Horne 2013 mouth Ring, every day M.D., every FACC, morning [facility] Metoprolol 02/12/ Active Tablets ER 200mg 90tabs 1 tab by Jeremie Horne Succinate ER 2013 24HR mouth Ring, every day M.D., [facility], [facility] Pradaxa 09/11/ Active Capsules 150mg 180cap 1 cap by Jeremie Horne 2012 s mouth Ring, twice a M.D., day [facility], [facility] Norvasc / Active Tablets 10mg 90tabs 1 by Jeremie Horne 0000 mouth Ring, every day M.D., [facility], [facility] Tart Romero / Active 4 oz Unknown Juice 0000 daily Acetaminophen / Active Tablets 325mg 2 tablets Unknown 0000 by mouth every 12 hours as needed for pain Diltiazem HCL 11/06/ Hx Tablets 60mg 240tab 1 by I48.2 Jeremie Horne 2015 - s mouth Jhonathan, 12/24/ three M.D., 2016 times a FACC, day [facility] Azithromycin 11/28/ Hx Tablets 250mg 2 tablet Unknown 2014 - day, 10/29/ then 1 2014 tablet next days [id number] Diltiazem HCL 10/19/ Hx Tablets 60mg 180tab take one I48.91 Jeremie Horne 2014 - s tablet Ring, 11/06/ twice a M.D., 2015 [facility], [facility] Lisinopril 02/25/ Hx Tablets 40mg 180tab daily Jeremie Horne 2012 - s Ring, 08/30/ M.D., 2012 [facility], [facility] Amlodipine 01/04/ Hx Tablets 10mg 90tabs 10 mg po Jeremie Horne Besylate 2012 qd Jhonathan, MAida, [facility], [facility] Osteo Bi-Flex / Hx daily Unknown 0000 - 2013 Arthritis Pain / Hx 650mg prn Unknown Relief OTC - 2017 Medications Administered in Office Medication Date Status Form Strength Qnty SIG Indications Ordering Provider Technetium TC Administered Injection Jeremie Horne 99M 015 Kenzie Ring M.D., [facility], Per Unit Dose FASNC Up To 40 Millicuries Vital Signs Date Vital Result Comment 06/12/2018 Height 72 inches 6'0" Weight 201.00 lb with shoes Heart Rate 62 /min BP Systolic Sitting 116 mmHg lue lg cuff BP Diastolic Sitting 62 mmHg lue lg cuff BP Systolic Standing 112 mmHg BP Diastolic Standing 62 mmHg Respiratory Rate 16 /min BMI (Body Mass Index) 27.3 kg/m2 Ejection Fraction 45% 05/26/2018 echo 11/19/2017 Height 72 inches 6'0" Weight 196.00 lb No shoes Heart Rate 72 /min BP Systolic Sitting 128 mmHg Rue reg cuff BP Diastolic Sitting 86 mmHg Rue reg cuff BP Systolic Standing 130 mmHg Rue reg cuff BP Diastolic Standing 90 mmHg Rue reg cuff Respiratory Rate 16 /min BMI (Body Mass Index) 26.6 kg/m2 Ejection Fraction 49% 04/16/2017-echo 05/07/2017 Height 72 inches 6'0" Weight 198.00 lb with shoes Heart Rate 66 /min irreg BP Systolic Sitting 136 mmHg Rue reg cuff BP Diastolic Sitting 80 mmHg Rue reg cuff BP Systolic Standing 128 mmHg Rue reg cuff BP Diastolic Standing 80 mmHg Rue reg cuff Respiratory Rate 16 /min BMI (Body Mass Index) 26.9 kg/m2 Ejection Fraction 49% 04/16/2017-echo 10/15/2016 Height 72 inches 6'0" Weight 202.00 lb w/o shoes Heart Rate 62 /min irreg BP Systolic Sitting 146 mmHg Rue, reg cuff BP Diastolic Sitting 100 mmHg Rue, reg cuff BP Systolic Standing 140 mmHg Rue BP Diastolic Standing 100 mmHg Rue BP Systolic Recheck 140 mmHg Rue large cuff BP Diastolic Recheck 96 mmHg Rue large cuff Respiratory Rate 16 /min BMI (Body Mass Index) 27.4 kg/m2 Ejection Fraction 45-50% as of 05/10/15 echo 02/12/2016 Height 72 inches 6'0" Weight 208.00 lb with shoes Heart Rate 70 /min BP Systolic Sitting 130 mmHg LA lg cuff BP Diastolic Sitting 70 mmHg LA lg cuff BP Systolic Standing 130 mmHg LA lg cuff BP Diastolic Standing 74 mmHg LA lg cuff Respiratory Rate 17 /min BMI (Body Mass Index) 28.2 kg/m2 12/25/2015 Height 72 inches 6'0" Weight 207.00 lb No shoes Heart Rate 62 /min BP Systolic Sitting 162 mmHg LA lrg cuff BP Diastolic Sitting 100 mmHg LA lrg cuff BP Systolic Standing 152 mmHg LA lrg cuff BP Diastolic Standing 98 mmHg LA lrg cuff BP Systolic Recheck 162 mmHg right arm lrg cuff BP Diastolic Recheck 98 mmHg right arm lrg cuff Respiratory Rate 14 /min BMI (Body Mass Index) 28.1 kg/m2 Ejection Fraction 45-50% 05/10/15 11/06/2015 Height 72 inches 6'0" Weight 212.00 lb No shoes Heart Rate 64 /min BP Systolic Sitting 138 mmHg Ra Lg cuff BP Diastolic Sitting 82 mmHg Ra Lg cuff BP Systolic Standing 142 mmHg Ra Lg cuff BP Diastolic Standing 84 mmHg Ra Lg cuff Respiratory Rate 14 /min BMI (Body Mass Index) 28.7 kg/m2 Ejection Fraction 45-50% 05/10/15 05/29/2015 Height 72 inches 6'0" Weight 217.00 lb w/o shoes Heart Rate 76 /min BP Systolic Sitting 146 mmHg Rue, lg cuff BP Diastolic Sitting 96 mmHg Rue, lg cuff BP Systolic Standing 146 mmHg Rue BP Diastolic Standing 100 mmHg Rue Respiratory Rate 18 /min BMI (Body Mass Index) 29.4 kg/m2 Ejection Fraction 45-50% as of 05/10/15 echo 11/30/2014 Height 72 inches 6'0" Weight 210.00 lb with boots Heart Rate 66 /min BP Systolic Sitting 130 mmHg La reg cuff BP Diastolic Sitting 96 mmHg La reg cuff BP Systolic Standing 128 mmHg La reg cuff BP Diastolic Standing 100 mmHg La reg cuff Respiratory Rate 16 /min BMI (Body Mass Index) 28.5 kg/m2 10/19/2014 Height 72 inches 6'0" Weight 210.00 lb Heart Rate 72 /min irreg BP Systolic Sitting 152 mmHg Ra large cuff BP Diastolic Sitting 94 mmHg Ra large cuff BP Systolic Standing 148 mmHg Ra BP Diastolic Standing 92 mmHg Ra Respiratory Rate 18 /min BMI (Body Mass Index) 28.5 kg/m2 09/23/2014 Height 72 inches 6'0" Weight 210.75 lb Heart Rate 78 /min BP Systolic Sitting 140 mmHg LA lg cuff BP Diastolic Sitting 96 mmHg LA lg cuff BP Systolic Standing 130 mmHg LA lg cuff BP Diastolic Standing 90 mmHg LA lg cuff Respiratory Rate 14 /min BMI (Body Mass Index) 28.6 kg/m2 02/21/2014 Height 72 inches 6'0" Weight 215.00 lb without shoes Heart Rate 82 /min BP Systolic Sitting 142 mmHg R arm reg cuff BP Diastolic Sitting 84 mmHg R arm reg cuff BP Systolic Standing 156 mmHg BP Diastolic Standing 156 mmHg Respiratory Rate 18 /min BMI (Body Mass Index) 29.2 kg/m2 08/30/2013 Height 72 inches 6'0" Weight 222.00 lb Heart Rate 90 /min BP Systolic Sitting 144 mmHg Lf arm, Lg cuff BP Diastolic Sitting 86 mmHg Lf arm, Lg cuff BP Systolic Standing 142 mmHg BP Diastolic Standing 86 mmHg Respiratory Rate 16 /min BMI (Body Mass Index) 30.1 kg/m2 Results Test Date Test Result H/L Range Note Basic Metabolic Panel 06/11/2018 Sodium 142 mmol/L 135-145 Potassium 4.2 mmol/L 3.5-5.0 Co2 Carbon Dioxide 25 mmol/L 22-32 Glucose 82 mg/dL 70-100 Blood Urea Nitrogen 19 mg/dL 6-24 Creatinine 0.94 mg/dL 0.67-1.17 BUN/Creatinine Ratio 20.2 High 8-20 Calcium 9.1 mg/dL 8.6-10.3 Egfr Non- 82.7 >60 Egfr 100.1 >60 1 Chloride 112 mmol/L High 101-111 Anion Gap 5 mmol/L 2-11 Basic Metabolic Panel 05/05/2017 Sodium 138 mmol/L 133-145 Potassium 4.4 mmol/L 3.5-5.0 Chloride 108 mmol/L 101-111 Co2 Carbon Dioxide 27 mmol/L 22-32 Anion Gap 3 mmol/L 2-11 Glucose 86 mg/dL 70-100 Blood Urea Nitrogen 18 mg/dL 6-24 Creatinine 1.01 mg/dL 0.67-1.17 BUN/Creatinine Ratio 17.8 8-20 Calcium 9.4 mg/dL 8.6-10.3 Egfr Non- 76.4 >60 Egfr 98.3 >60 2 Basic Metabolic Panel 05/05/2017 Sodium 138 mmol/L 133-145 Potassium 4.4 mmol/L 3.5-5.0 Chloride 108 mmol/L 101-111 Co2 Carbon Dioxide 27 mmol/L 22-32 Anion Gap 3 mmol/L 2-11 Glucose 86 mg/dL 70-100 Blood Urea Nitrogen 18 mg/dL 6-24 Creatinine 1.01 mg/dL 0.67-1.17 BUN/Creatinine Ratio 17.8 8-20 Calcium 9.4 mg/dL 8.6-10.3 Egfr Non- 76.4 >60 Egfr 98.3 >60 3 CBC Auto Diff 04/17/2017 White Blood Count 6.9 10^3/uL 3.5-10.8 Red Blood Count 4.78 10^6/uL 4.0-5.4 Hemoglobin 14.1 g/dL 14.0-18.0 Hematocrit 42 % 42-52 Mean Corpuscular Volume 89 fL 80-94 Mean Corpuscular Hemoglobin 30 pg 27-31 Mean Corpuscular HGB Conc 33 g/dL 31-36 Red Cell Distribution Width 14 % 10.5-15 Platelet Count 219 10^3/uL 150-450 Mean Platelet Volume 9 um3 7.4-10.4 Abs Neutrophils 5.2 10^3/uL 1.5-7.7 Abs Lymphocytes 0.8 10^3/uL Low 1.0-4.8 Abs Monocytes 0.7 10^3/uL 0-0.8 Abs Eosinophils 0.1 10^3/uL 0-0.6 Abs Basophils 0 10^3/uL 0-0.2 Abs Nucleated RBC 0 10^3/uL Granulocyte % 75.8 % 38-83 Lymphocyte % 11.3 % Low 25-47 Monocyte % 10.2 % High 1-9 Eosinophil % 2.0 % 0-6 Basophil % 0.7 % 0-2 Nucleated Red Blood Cells % 0 Basic Metabolic Panel 04/17/2017 Sodium 141 mmol/L 133-145 Potassium 3.7 mmol/L 3.5-5.0 Chloride 107 mmol/L 101-111 Co2 Carbon Dioxide 28 mmol/L 22-32 Anion Gap 6 mmol/L 2-11 Glucose 82 mg/dL 70-100 Blood Urea Nitrogen 17 mg/dL 6-24 Creatinine 1.01 mg/dL 0.67-1.17 BUN/Creatinine Ratio 16.8 8-20 Calcium 9.2 mg/dL 8.6-10.3 Egfr Non- 76.4 >60 Egfr 98.3 >60 4 Basic Metabolic Panel 07/10/2016 Sodium 140 mmol/L 133-145 Potassium 3.8 mmol/L 3.5-5.0 Chloride 107 mmol/L 101-111 Co2 Carbon Dioxide 29 mmol/L 22-32 Anion Gap 4 mmol/L 2-11 Glucose 101 mg/dL High 70-100 Blood Urea Nitrogen 14 mg/dL 6-24 Creatinine 0.99 mg/dL 0.67-1.17 BUN/Creatinine Ratio 14.1 8-20 Calcium 8.9 mg/dL 8.6-10.3 Egfr Non- 78.5 >60 Egfr 100.9 >60 5 Basic Metabolic Panel 05/08/2015 Sodium 137 mmol/L 133-145 Potassium 4.0 mmol/L 3.5-5.0 Chloride 106 mmol/L 101-111 Co2 Carbon Dioxide 26 mmol/L 22-32 Anion Gap 5 mmol/L 2-11 Glucose 101 mg/dL High 70-100 Blood Urea Nitrogen 20 mg/dL 6-24 Creatinine 0.92 mg/dL 0.67-1.17 BUN/Creatinine Ratio 21.7 High 8-20 Calcium 9.3 mg/dL 8.6-10.3 Egfr Non- 85.7 >60 Egfr 110.3 >60 6 Basic Metabolic Panel 03/14/2014 Sodium 137 mmol/L 133-145 Potassium 3.8 mmol/L 3.7-5.6 Chloride 104 mmol/L 101-111 Co2 Carbon Dioxide 29 mmol/L 22-32 Anion Gap 4 mmol/L 2-11 Glucose 91 mg/dL 70-100 Blood Urea Nitrogen 15 mg/dL 6-24 Creatinine 0.91 mg/dL 0.67-1.17 BUN/Creatinine Ratio 16.5 8-20 Calcium 9.1 mg/dL 8.6-10.3 Egfr Non- 87.2 >60 Egfr 112.1 >60 7 Laboratory test finding 12/09/2013 PSA Diagnostic 0.869 ng/mL 0-4.0 8 Basic Metabolic Panel 12/16/2012 Sodium 143 mmol/L 133-145 Potassium 3.9 mmol/L 3.5-5.0 Chloride 106 mmol/L 101-111 Co2 Carbon Dioxide 25.0 mmol/L 22-32 Anion Gap 12.0 mmol/L High 2-11 Glucose 92 mg/dL 70-100 Blood Urea Nitrogen 12 mg/dL 6-24 Creatinine 0.90 mg/dL 0.50-1.40 BUN/Creatinine Ratio 13.3 8-20 Calcium 9.7 mg/dL 8.1-9.9 Egfr Non- 88.6 >60 Egfr 114.0 >60 9 Laboratory test finding 12/16/2012 Magnesium 2.4 mg/dL 1.7-2.6 TSH (Thyroid Stimulating Horm) 1.28 miu/mL 0.34-5.60 CBC No Diff 12/16/2012 White Blood Count 5.4 10^3/uL 4.8-10.8 Red Blood Count 5.25 10^6/uL 4.0-5.4 Hemoglobin 15.4 g/dL 14.0-18.0 Hematocrit 46 % 42-52 Mean Corpuscular Volume 87 fL 80-94 Mean Corpuscular Hemoglobin 29 pg 27-31 Mean Corpuscular HGB Conc 34 g/dL 31-36 Red Cell Distribution Width 14 % 10.5-15 Platelet Count 207 10^3/uL 150-450 Mean Platelet Volume 8 um3 7.4-10.4 1 Because ethnic data is not always readily [...] 15-29 5 Kidney failure <15 (or dialysis) 2 Because ethnic data is not always readily [...] 15-29 5 Kidney failure <15 (or dialysis) 3 Because ethnic data is not always readily [...] 15-29 5 Kidney failure <15 (or dialysis) 4 Because ethnic data is not always [...] 5 Kidney failure <15 (or dialysis) 5 Because ethnic data is not always readily [...] 15-29 5 Kidney failure <15 (or dialysis) 6 Because ethnic data is not always [...] 5 Kidney failure <15 (or dialysis) 7 Because ethnic data is not always readily [...] 15-29 5 Kidney failure <15 (or dialysis) 8 Serum levels of PSA measured using the Az APTwater DXI Hybritech immunoassay should not be interpreted as absolute evidence of the presence or absence of disease. The PSA value should be used in conjunction with other pertinent clinical diagnostic procedures. The values obtained with different assay methods or kits cannot be used interchangeably. 9 Because ethnic data is not always readily [...] 15-29 5 Kidney failure <15 (or dialysis) Procedures Date CPT Code Description Status 06/12/2018 60792 EKG Tracing & Interpretation Completed 05/26/2018 75439 ECHO Transthoracic, Real-Time 2D With Doppler And Color Completed Flow 05/26/2018 96849 ECHO Transthoracic, Real-Time 2D With Doppler And Color Completed Flow 11/19/2017 38436 EKG Tracing & Interpretation Completed 04/16/2017 53141 ECHO Transthoracic, Real-Time 2D With Doppler And Color Completed Flow 10/15/2016 73885 EKG Tracing & Interpretation Completed 11/06/2015 58025 EKG Tracing & Interpretation Completed 05/29/2015 76514 EKG Tracing & Interpretation Completed 05/10/2015 81397 ECHO Transthoracic, Real-Time 2D With Doppler And Color Completed Flow 10/14/2014 02316 ECHO Transthoracic, Real-Time 2D With Doppler And Color Completed Flow 10/10/2014 27429 Myocardial Perfusion Imaging Tomographic (Spect) Completed Multiple Studies 10/10/2014 36131 Stress Test Completed 09/23/2014 13804 EKG Tracing & Interpretation Completed 02/21/2014 09546 EKG Tracing & Interpretation Completed 08/19/2013 81786 ECHO Transthoracic, Real-Time 2D With Doppler And Color Completed Flow 02/15/2013 35996 EKG Tracing & Interpretation Completed 01/27/2013 90403 Polysomnography Sleep Staging 4+ Parameters W/Cpap Completed 01/04/2013 34414 EKG Tracing & Interpretation Completed 12/25/2012 50321 ECHO Transthoracic, Real-Time 2D With Doppler And Color Completed Flow 12/20/2012 26104 Polysomnography Sleep Staging 4+ Parameters Completed 12/16/2012 81144 EKG, Interpretation Only Completed 12/16/2012 24847 Cardioversion Completed 12/14/2012 75373 EKG Tracing & Interpretation Completed Encounters Type Date Location Provider CPT E/M Dx Office Visit 06/12/2018 [facility] Jeremie Ring, 18048 I77.810 9:00a 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 M.D., FACC, FASNC I48.2 Office Visit 11/19/2017 8:45a [facility] Jeremie Horne Ring, 41412 I48.2 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 M.D., FACC, FASOH Office Visit 05/07/2017 10:15a [facility] Jeremie Horne Ring, 48040 I48.2 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 M.D., FACC, FASNC Office Visit 10/15/2016 8:45a [facility] Jeremie Horne Ring, 69866 I48.2 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 M.D., FACC, FASNC Office Visit 02/12/2016 9:45a [facility] Jeremie Horne Ring, 48855 I10 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 M.D., FACC, FASNC Office Visit 12/25/2015 8:45a [facility] Jeremie Horne Ring, 09502 I48.2 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 M.D., FACC, FASNC Office Visit 11/06/2015 8:45a [facility] Jeremiejulieth Horne Ring, 30606 I48.2 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 M.D., FACC, FASNC Office Visit 05/29/2015 8:45a [facility] Jeremie Horne Ring, 56118 447.71 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 M.D., FACC, [facility] 427.31 Office Visit 11/30/2014 9:15a [facility] Jeremie Horne Ring, 34498 427.31 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 M.D., FACRod[place], [facility] Office Visit 10/19/2014 9:15a [facility] Jeremie Ring, 42089 427.31 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 Mera, [facility], [facility] Office Visit 09/23/2014 9:30a [facility] Jeremie Ring, 58816 425.4 M.Karla, [facility] 427.31 Office Visit 02/21/2014 8:45a [facility] Jeremie Ring, 12050 425.4 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 Mera, [facility], [facility] Office Visit 09/14/2013 1:30p [facility], 71375 715.17 C.M.A. MAida Office Visit 08/30/2013 8:15a [facility] Jeremie Ring, 05035 425.4 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 Mera, [place], [facility] Office Visit 08/23/2013 9:00a [facility], 77852 719.47 C.M.A. MAida Office Visit 02/15/2013 1:00p [facility] Jeremie Ring, 37928 427.31 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 Mera, [facility], [facility] Office Visit 01/04/2013 1:00p [facility] Jeremie Ring, 97570 427.31 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 Mera, [facility], [facility] Office Visit 12/14/2012 1:00p [facility] Jeremie Ring, 95186 427.31 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 Mera, [facility], [facility] Office Visit 07/24/2012 9:00a [facility], 57535 719.47 C.M.A. MVanessaD. Office Visit 06/26/2012 10:00a [facility], 09548 726.79 C.M.A. M.D. Plan of Care 06/12/2018 - Jeremie Ring M.D., GRACIELA PHILILPSI77.810 Thoracic aortic ectasiaComments:As discussed, your heart function and mildly enlarged aorta are stable.Follow up:6 lnsovzY59.2 Chronic atrial fibrillation
--- OUTSIDE RECORDS SUMMARY | 2018-06-26 18:06 | XMS REPORT ---
:1960 External Reference #:[id number] Author Organization [facility] Address [address] [place] [address] Phone [phone] Care Team Providers Name Role Phone Dipesh Mead MD Care Team Information Legal Stenographer Unavailable Dipesh Mead MD Primary Care Physician Unavailable Payers Type Date Identification Numbers Payment Provider Subscriber Commercial Effective: Policy Number: [id number] [place] Plan Bobby Jasso 2013 PayID: [id number] [address] [place] [address] Problems Date Description Provider Status Onset: 05/23/2012 [...] mouth R59.0 Rachel Velasquez /2017 s three Sergio, 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 times a day Diltiazem HCL ER 10/20 Active Caps ER 60mg 1 by mouth Dipesh Mitchell /2015 12HR chayo Becerra M.DVanessa daily Amlodipine 06/23 Active Tablets 10mg 1 by mouth [facility] every day [facility] Pradaxa 05/23 Active Capsules 150mg take 1 capsule by Medicine mouth 2 Associates times a [facility] day Metoprolol 05/23 Active Tablets 200mg 1 po qd Family Succinate ER ER 24HR [facility] Lisinopril 05/23 Active Tablets 40mg 1 po qd [facility] Furosemide 05/23 Active Tablets 20mg 1 po qd [facility] Klor-Con M20 Active Tablets 20Meq 1 by [...] 05/23 Hx Tablets 5mg 1 / po [facility] qd [facility] 06/23 [facility] Indomethacin 05/23 Hx Capsules 25mg 30cap take one 719.47 Mando Escobar s capsule by Camron Montesinos M.Karla 08/30 times daily as needed for pain with food Cipro 03/07 Hx Tablets 500mg 14tab 1 po bid 787.91 Meghan s for 7 days Camron Ku 07/08 Work Note 03/07 Hx Bobby 787.91 was seen [place], Camron by 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 Return To [...] Vancenase Aq DS 03/27 Hx 1unit 2 [place] qd Dipesh Mitchell /1997 s Camron Odom [...] CPT Code Status Date Vaccine Lot # [id number] Given 08/08/2017 Influenza Vac, Quadrivalent, Slit Virus, Im [id number] Given 06/10/2007 Tetanus And Diptheria Adult Preservative Free [id number] >7Yrs Vital Signs Date Vital Result Comment 06/24/2018 BP Systolic 142 mmHg BP Diastolic [...] (SGPT) 28 IU/L 0-44 3 CBC Electronic ([facility]) 09/23/2017 WBC 3.4 Low 3.6-9.6 RBC 4.88 [...] Color YELLOW Yellow Appearance-Urine CLEAR Clear Specific [place]-Ur 1.009 Low 1.010-1.030 Esterase-Urine NEGATIVE Negative Nitrite NEGATIVE Negative Kbrriytnuuto-Dh-YHQ NEGATIVE Negative Protein-Urine NEGATIVE Negative PH-Urine 5.5 5-9 Blood-Urine NEGATIVE Negative Ketones-Urine NEGATIVE Negative Bilirubin-Ur NEGATIVE Negative Glucose-Urine NEGATIVE Negative Egfr (Calculated) 08/15/2010 Estimated GFR (CALCULATED) 19 Egfr >60 19, 20 Egfr, -Kenyan >60 19, 21 Lipid Panel 08/15/2010 Cholesterol, [...] 25 Basophil Absolute 0.0 x103 0.0-0.2 25 Comprehensive Metabolic 06/17/2007 Glucose 98 mg/dL 70-100 25 [...] >60 25, 31 Ua - Non Micro (a) 06/10/2007 Appearance CLEAR Color YELLOW Glucose, Urine (Fma/[facility]/CTX) NEG Bilirubin NEG Ketones TRACE SP Grav >=1.030 Blood NEG PH 5.0 Protein SSA NEG Urobil 0.2 Nitrite NEG Leukocytes (a/[facility]rex) NEG Comprehensive Metabolic 12/26/2005 Glucose 92 mg/dL [...] NEG Leukocytes NEG Laboratory test finding 05/03/2005 [facility] Labs BASIC MET PANEL See Image Report [...] (Calculated) >60 45 Ua - Non Micro (a New) 11/08/2002 Appearance HAZY DK. YELLOW 46 Glucose - 46 Bilirubin - 46 Ketones TRACE 46 SP Grav 1.025 46 Blood LARGE 46 PH 5.0 46 Protein SSA 1+ 46 Urobil 0.2 46 Nitrite POSITIVE 46 Leukocytes SMALL 46 Ua - Non Micro (a New) 07/14/2002 Appearance CLEAR YELLOW Glucose NEGATIVE Bilirubin NEGATIVE Ketones TRACE SP Grav >=1.030 Blood NEGATIVE PH 5.5 Protein NEGATIVE Urobil 0.2 Nitrite NEGATIVE Leukocytes NEGATIVE Basic Metabolic ([facility]) 06/09/2002 Sodium 140 mmol/L 135-145 Potassium 4.0 3.5-5.0 Chloride 103 mmol/L 95-108 Co2 22.9 21-33 Glucose 104 mg/dL 70-105 BUN 17 6-22 Creatinine 1.4 mg/dL 0.5-1.4 BUN/Creatinin Ratio 12.1 8-20 Calcium 9.2 mg/dL 8.7-10.2 CBC Electronic ([facility]) 06/09/2002 WBC 4.0 Low 4.8-10.8 RBC 5.14 [...] Bilirubin, Total 0.70 mg/dL 0.2-1.30 Lipid Profile ([facility]) 06/27/2000 Cholesterol 171 mg/dL 120-200 HDL-Chol 31 [...] 0.0 X1000 0.0-0.20 Ua - Non Micro (a New) 06/18/2000 Appearance CLEAR LT YELLOW Glucose - Bilirubin - Ketones - SP Grav 1.025 Blood - PH 6.0 Protein - Urobil 0.2 Nitrite - Leukocytes - 1 Serum levels of PSA measured using the [employer] DXI Hybritech immunoassay should not be interpreted as absolute evidence of the presence or absence of disease. The PSA value should be used in conjunction with other pertinent clinical diagnostic procedures. The values obtained with different assay methods or kits cannot be used interchangeably. 2 SEE RESULT BELOW Name: BOBBY JASSO : [address]: Patricio Gibbs MD Acct: [id number] Unit: [id number] AGE: 57 Location: ENDO Re12/29/17 SEX: M Status: DEP REF SPEC: [id number] LEAH: 12/29/17-[address] [facility] [address]: Patricio Gibbs MD REQ: [id number] RECD: 12/29/176096 STATUS: EVONNE MARIE DR: Dipesh Mead MD [...] 1000 END OF REPORT DEPARTMENT OF PATHOLOGY, [address] [place] [address] Ayad Rosario M.D. Director [facility] # [id number] 3 1SST 4 Because ethnic data is [...] Serum levels of PSA measured using the [employer] DXI Hybritech immunoassay should not be interpreted [...] Serum levels of PSA measured using the [employer] DXI Hybritech immunoassay should not be interpreted [...] <15 (or dialysis) 15 RUN DATE: 09/13/11 [facility] NMI LIVE PAGE 1 RUN TIME: 0843 Specimen Inquiry RUN USER: INTERFACE Name: BOBBY JASSO Status: DIS IN Re09/11/11 Age/Sex: 50/M Unit#: [id number] Location: ICU : 60 SPEC #: [id number] LEAH: 09/11/11-1415 STATUS: COMP REQ #: [id number] RECD: 09/11/11-[address] [facility] [address]: Celina PARRA,[facility] SOURCE: NOSE ENTR: 09/11/11-[address]: Dipesh Mead MD [facility]: ORDERED: MRSA/VRE CULT ACT WKST: B 09/13/11 #1 Procedure Result Verified Site > MRSA/VRE CULTURE Final 09/13/11- 842 ML NO MRSA ISOLATED - [facility] Permit #[id number] [address] [place] [address] DEPARTMENT OF PATHOLOGY, [address] [place] [address] [facility] Permit #[id number] Mera Acosta M.D. In [employer] 16 Anion gap measurement may be of [...] 0.06 ng/mL NOT SUPPORTIVE OF DIAGNOSIS OF [place] 0.06 - 0.50 ng/ml INDETERMINATE: SUGGEST SERIAL STUDIES IF CLINICALLY INDICATED. Greater than 0.5 ng/mL CONSISTENT WITH DIAGNOSIS OF [place] . 19 FASTING; 1 SST 20 >59 [...] 1 SST,1 LAV 26 Cholesterol Risk Levels (NIH) Recommended: under 200 [...] SST, 1 LAV 33 Cholesterol Risk Levels (NIH) Recommended: under 200 [...] cannot be used interchangeably. Results obtained using Adv[employer] for Outcomes [employer](INOR)aur ICMA methodology. . 39 mL/min/1.73m2 . Normal [...] Description Status Comment 12/29/2017 Colonoscopy Completed 12/17/2005 24757 Electrocardiogram Complete Completed 11/08/2002 36322 Injection Subcutaneous Or Completed DEMEROL 25MG, VISTARIL Intramuscular 12.5MG LA IM RM Encounters Type Date Location Provider CPT E/M Dx Office Visit 02/03/2018 1:10p [facility] Office Dipesh Mead, 05725 J01.90 Mera J20.9 Office Visit 09/23/2017 2:10p [facility] Dipesh Mead M.D. 66532 I48.0 R53.83 Office Visit 08/08/2017 1:10p Main Office Dipesh Mead M.D. 82998 S40.861A W57.xxxA Z23 Office Visit 10/20/2015 11:00a Main Office Dipesh Mead M.D. 36016 I10 I48.0 Office Visit 11/28/2014 11:30a Main Office Laney Barnett Afnp-C 10472 466.0 427.31 401.9 Office Visit 08/18/2014 1:30p Main Office Eric Vicente M.D. 03034 881.00 E920.8 Office Visit 08/04/2014 2:30p Main Office Avril Ruiz Afnp-C 38655 E906.4 912.4 Office Visit 06/23/2014 3:30p Main Office Avril Ruiz Afnp-C 66971 465.8 Office Visit 09/08/2013 1:40p Main Office Dipesh Mead M.D. 07678 528.00 Office Visit 08/30/2013 1:10p Main Office Dipesh Mead M.D. 89945 462 Office Visit 05/27/2012 5:10p Main Office Dipesh Mead M.D. 91306 719.47 Office Visit 05/23/2012 9:30a Main Office Mando Montesinos M.D. 94883 719.47 Office Visit 07/08/2011 1:40p Main Office Dipesh Mead M.D. 91978 784.2 Office Visit 03/07/2011 11:15a [facility] BARON Lange 65681 787.91 Office Visit 08/14/2010 8:00a [facility] Dipesh Mead M.D. 23422 401.9 Office Visit 10/02/2009 3:20p Main Office Jessica Boone M.D. 42774 724.2 Office Visit 12/19/2008 2:15p Main Office Meghan Ku, [facility] 39961 487.1 Office Visit 12/15/2008 11:00a [facility] Meghan Ku [facility] 94112 487.1 Office Visit 12/12/2008 6:15p Main Office Meghan Ku [facility] 02069 487.1 Office Visit 02/17/2008 1:20p Main Office Dipesh Mead M.D. 44760 724.5 Office Visit 06/10/2007 7:20p Main Office Dipesh Mead M.D. 20395 V06.5 V70.0 401.9 Office Visit 09/09/2006 2:00p [facility] Dipesh Mead M.D. 33239 787.91 Office Visit 05/13/2006 8:20p Main Office Radha johnathon Savage, 31121 844.9 M.D. Office Visit 12/17/2005 3:20p Main Office Dipesh Mead M.D. 44723 V70.0 401.9 Office Visit 05/02/2005 8:40p Main Office Mando Montesinos M.D. 67103 553.00 Office Visit 01/02/2005 5:10p Main Office Dipesh Mead M.D. 25938 401.9 Office Visit 11/07/2004 5:10p Main Office Dipesh Mead M.D. 98893 401.9 Office Visit 09/26/2004 6:20p Main Office Dipesh Mead M.D. 90981 401.9 Office Visit 10/18/2003 1:20p [facility] Dipesh Mead M.D. 44570 401.9 995.3 Office Visit 11/08/2002 2:00p [facility] Sam Ramsey M.D. 86610 604.90 Office Visit 07/14/2002 3:20p Main Office Dipesh Mead M.D. 50820 Office Visit 05/04/2002 4:00p [facility] Dipesh Mead M.D. 39939 Office Visit 03/16/2002 4:00p Main Office Avril Ruiz Essie-Rodney 75626 Office Visit 08/14/2001 3:10p Main Office Dipesh Mead M.D. 06111 Office Visit 12/23/2000 1:10p [facility] Dipesh Mead M.D. 61576 Office Visit 06/18/2000 3:20p Main Office Dipesh Mead M.D. 23370 Plan of Care 06/24/2018 - Rachel Hill, NPR59.0 Localized enlarged lymph nodesNew Medication:Augmentin 500-125 mgComments:suspect lymph node swelling is what is causing the pain - cannot rule out dental cause - will treat with Abx to see if there is an improvement - which will help lymph or dental infection - if worseningor failure to resolve - dental consult.G50.1 Atypical facial painComments:Tylenol and ice packs PRN painAllComments:~B_~U_Medication Management~b_~u_ Patient Understands medications he 's taking? Yes No Are there Barriers to Adherence? Yes No Has the patient been asked about herbal supplements and therapies, and OTC meds? Yes No ~B_~U_Care Plan~b_~u_1. Patient has been queried about patient's goals/preferences and functional/lifestyle goals at relevant visits. If relevant, describe: na2. Treatment goals as explained to the patient: above3. Are there barriers to meeting treatment goals? Yes No If Yes, please describe:4. Self- Management goals as described to the patient:Yes NoAs always, we strongly encourage a healthy diet and making physical activity a part of your every day life. If you have questions about how or where to start, please contact the office.
--- OUTSIDE RECORDS SUMMARY | 2018-06-26 18:06 | XMS REPORT ---
:1960 External Reference #:[id number] Author Organization [employer] Address [address] [place] [address] Phone [phone] Care Team Providers Name Role Phone Wes Porras MD Care Team Information Facility Engineer Unavailable Dipesh Mead MD Primary Care Physician Unavailable Payers Type Date Identification Numbers Payment Provider Subscriber Commercial Policy Number: [id number] [facility] Ubaldo Pedersen SR Group Number: [id number] [address] PayID: [id number] [place] [address] Problems Date Description Provider Status Onset: 05/26/2018 Thoracic aortic ectasia Traveling ECHO 1 Active Onset: 02/12/2016 Essential hypertension Jeremie Ring M.D., [facility], Active FASNC Onset: 11/06/2015 Chronic atrial fibrillation Jeremie iRng M.D., [facility], Active FASNC Onset: 05/29/2015 Thoracic Aortic Ectasia Jeremie Ring M.D., [facility], Active FASNC Onset: 09/23/2014 Atrial fibrillation Jeremie Ring M.D., [facility], Active FASNC Onset: 08/30/2013 Primary cardiomyopathy Jeremie Ring M.D., [facility], Active FASNC Social History Type Date Description Comments Marital [...] Horne 2017 mouth Ring, every day M.D., [facility], [facility] Diltiazem HCL 12/24/ Active Tablets 90mg 360tab take 90 I48.2 Jeremie Horne 2015 s mg three Ring, times a M.D., day [facility], [facility] Lisinopril 08/30/ Active Tablets 40mg 90tabs 1 tabs by Jeremie Horne 2012 mouth Ring, every day M.D., [facility], [facility] Furosemide 03/08/ Active Tablets 20mg 90tabs 1 tab by Jeremie Horne 2013 mouth Ring, every day M.D., every FACC, morning [facility] Metoprolol 02/12/ Active Tablets ER 200mg 90tabs 1 tab by Jeremie Horne Succinate ER 2013 24HR mouth Ring, every day M.D., [facility], [facility] Pradaxa 09/11/ Active Capsules 150mg 180cap 1 cap by Jeremie Horne 2012 s mouth Ring, twice a M.D., day [facility], [facility] Norvasc / Active Tablets 10mg 90tabs 1 by Jeremie Horne 0000 mouth Ring, every day M.D., [facility], [facility] Tart Romero / Active 4 oz Unknown Juice 0000 daily Acetaminophen / Active Tablets 325mg 2 tablets Unknown 0000 by mouth every 12 hours as needed for pain Diltiazem HCL 11/06/ Hx Tablets 60mg 240tab 1 by I48.2 Jeremie Horne 2015 - s mouth Jhonathan, 12/24/ three M.D., 2016 times a FACC, day [facility] Azithromycin 11/28/ Hx Tablets 250mg 2 tablet Unknown 2014 - day, 10/29/ then 1 2014 tablet next days [id number] Diltiazem HCL 10/19/ Hx Tablets 60mg 180tab take one I48.91 Jeremie Horne 2014 - s tablet Ring, 11/06/ twice a M.D., 2015 [facility], [facility] Lisinopril 02/25/ Hx Tablets 40mg 180tab daily Jeremie Horne 2012 - s Ring, 08/30/ M.D., 2012 [facility], [facility] Amlodipine 01/04/ Hx Tablets 10mg 90tabs 10 mg po Jeremie Horne Besylate 2012 qd Jhonathan, MAida, [facility], [facility] Osteo Bi-Flex / Hx daily Unknown 0000 - 2013 Arthritis Pain / Hx 650mg prn Unknown Relief OTC - 2017 Medications Administered in Office Medication Date Status Form Strength Qnty SIG Indications Ordering Provider Technetium TC Administered Injection Jeremie Horne 99M 015 Kenzie Ring M.D., [facility], Per Unit Dose FASNC Up To 40 [...] levels of PSA measured using the [employer] DXI Hybritech immunoassay should not be interpreted [...] Procedures Date CPT Code Description Status 06/12/2018 19585 EKG Tracing & Interpretation Completed 05/26/2018 68249 ECHO Transthoracic, Real-Time 2D With Doppler And Color Completed Flow 05/26/2018 93210 ECHO Transthoracic, Real-Time 2D With Doppler And Color Completed Flow 11/19/2017 19514 EKG Tracing & Interpretation Completed 04/16/2017 42961 ECHO Transthoracic, Real-Time 2D With Doppler And Color Completed Flow 10/15/2016 59975 EKG Tracing & Interpretation Completed 11/06/2015 08414 EKG Tracing & Interpretation Completed 05/29/2015 21980 EKG Tracing & Interpretation Completed 05/10/2015 73567 ECHO Transthoracic, Real-Time 2D With Doppler And Color Completed Flow 10/14/2014 01036 ECHO Transthoracic, Real-Time 2D With Doppler And Color Completed Flow 10/10/2014 47682 Myocardial Perfusion Imaging Tomographic (Spect) Completed Multiple Studies 10/10/2014 50676 Stress Test Completed 09/23/2014 50527 EKG Tracing & Interpretation Completed 02/21/2014 69711 EKG Tracing & Interpretation Completed 08/19/2013 23805 ECHO Transthoracic, Real-Time 2D With Doppler And Color Completed Flow 02/15/2013 35587 EKG Tracing & Interpretation Completed 01/27/2013 14895 Polysomnography Sleep Staging 4+ Parameters W/Cpap Completed 01/04/2013 50114 EKG Tracing & Interpretation Completed 12/25/2012 68161 ECHO Transthoracic, Real-Time 2D With Doppler And Color Completed Flow 12/20/2012 99351 Polysomnography Sleep Staging 4+ Parameters Completed 12/16/2012 44285 EKG, Interpretation Only Completed 12/16/2012 09349 Cardioversion Completed 12/14/2012 70031 EKG Tracing & Interpretation Completed Encounters Type Date Location Provider CPT E/M Dx Office Visit 11/19/2017 [facility] Ring, 05063 I48.2 8:45a Natural Remedy Consultant Mera, FACC, FASNC Office Visit 05/07/2017 [facility] Ring, 98917 I48.2 10:15a Natural Remedy Consultant Mera, FACC, FASNC Office Visit 10/15/2016 [facility] Ring, 22455 I48.2 8:45a Natural Remedy Consultant Tomer., FACC, FASNC Office Visit 02/12/2016 [facility] Ring, 23376 I10 9:45a Natural Remedy Consultant Louis.Papito., FACC, FASNC Office Visit 12/25/2015 [facility] Ring, 73092 I48.2 8:45a Natural Remedy Consultant Tomer., FACC, FASNC Office Visit 11/06/2015 [facility] Horne Ring, 95276 I48.2 8:45a Natural Remedy Consultant Tomer., FACC, FASNC Office Visit 05/29/2015 [facility] Horne Ring, 68890 447.71 8:45a Natural Remedy Consultant Tomer., FACC, [facility] 427.31 Office Visit 11/30/2014 9:15a [facility] Ring, 19723 427.31 Natural Remedy Consultant M.Papito., FACC, FASNC Office Visit 10/19/2014 9:15a [facility] Hrone Ring, 08054 427.31 Natural Remedy Consultant Louis.Papito., FACC, FASMERRY Office Visit 09/23/2014 9:30a [facility] Jeremie Ring, 84124 425.4 Mera, ALAN, [facility] 427.31 Office Visit 02/21/2014 8:45a [facility] Ring, 63935 425.4 Carolyn Tesfaye, FACC, FASMERRY Office Visit 09/14/2013 1:30p [facility], 27684 715.17 C.M.A. M.D. Office Visit 08/30/2013 8:15a [facility] Ring, 03787 425.4 [facility] Tesfaye, [facility], FASVT Office Visit 08/23/2013 9:00a [facility], 04447 719.47 C.M.A. M.Papito. Office Visit 02/15/2013 1:00p [facility] Ring, 48306 427.31 Carolyn Tesfaye, ALAN, [facility] Office Visit 01/04/2013 1:00p [facility] Ring, 92263 427.31 Carolyn Tesfaye, [facility], [facility] Office Visit 12/14/2012 1:00p [facility] Ring, 74295 427.31 Carolyn Tesfaye, [facility], [facility] Office Visit 07/24/2012 9:00a [facility], 52964 719.47 C.M.A. M.D. Office Visit 06/26/2012 10:00a [facility], 57302 726.79 C.M.A. M.D. Plan of Care 06/12/2018 - Jeremie Ring M.D., ALAN, UMRPBB46.810 Thoracic aortic ectasiaComments:As discussed, your heart function and mildly enlarged aorta are stable.Follow up:6 months
[2018-06-26 18:45] LABS: ABS Basophils 0.1 10^3/ul (0-0.2); ABS Eosinophils 0.2 10^3/ul (0-0.6); ABS Monocytes 0.6 10^3/ul (0-0.8); ABS Neutrophils 4.1 10^3/ul (1.5-7.7); ABS Nucleated RBC 0 10^3/ul; Eosinophil % 3.4 % (0-6); Hematocrit 42 % (42-52); Hemoglobin 14.4 g/dl (14.0-18.0); Lymphocyte % 16.6 % (25-47); Mean Corpuscular HGB Conc 34 g/dl (31-36); Mean Corpuscular Hemoglobin 31 pg (27-31); Mean Corpuscular Volume 90 fL (80-94); Mean Platelet Volume 7.5 um3 (7.4-10.4); Nucleated Red Blood Cells % 0.1; Platelet Count 229 10^3/ul (150-450); Red Cell Distribution Width 14 % (10.5-15); White Blood Count 5.9 10^3/ul (3.5-10.8)
[2018-06-26 19:04] LABS: EGFR Non-African American 64.9 (>60)
[2018-06-26] MEDS ORDERED: Iohexol 300* (CONTRAST) 10 ML SDV IV ONE (19:34)
--- NOTE | 2018-06-26 19:38 | ED ---
Throat Pain/Nasal Congestion - HPI Summary HPI Summary: 57-year-old male presents with facial swelling for past couple days. He states he was seen his primary told that he has a salivary gland infection. Placed on penicillin. He states he's had this before and was treated with penicillin but never this much swelling. He states that he was seen again today and told to come to the ED. He states today he noticed more swelling to the area. He denies any dental pain. He denies any Fevers. No chest pain or shortness breath. No difficulty swelling. Has not been drooling more. No change with heat or cold with the pain. No pain or swelling on the Ice. He has history of A. fib. - History of Current Complaint Chief Complaint: EDDentalPain Time Seen by Provider: 06/26/18 18:32 - Allergies/Home Medications Allergies/Adverse Reactions: Allergies Allergy/AdvReac Type Severity Reaction Status Date / Time No Known Allergies Allergy Verified 06/26/18 18:10 PMH/Surg Hx/FS Hx/Imm Hx Endocrine/Hematology History: Denies: Hx Diabetes Cardiovascular History: Reports: Hx Hypertension Denies: Hx Pacemaker/ICD History: Denies: Hx Renal Disease Sensory History: Denies: Hx Hearing Aid Psychiatric History: Denies: Hx Panic Disorder - Surgical History Surgery Procedure, Year, and Place: CYST REMOVED LT SIDE OF FACE 2011 AT [facility] – [place]. DEVIATED SEPTUM. HERNIA X2 Infectious Disease History: No Infectious Disease History: Denies: Traveled Outside the [place] in Last 30 Days - Social History Substance Use Type: Reports: None Review of Systems Negative: Fever Positive: Other - left jaw pain Negative: Chest Pain Negative: Shortness Of Breath All Other Systems Reviewed And Are Negative: Yes Physical Exam Triage Information Reviewed: Yes Vital Signs On Initial Exam: Initial Vitals Temp Pulse Resp BP Pulse Ox 97.8 F 80 14 149/101 97 06/26/18 18:05 06/26/18 18:05 06/26/18 18:05 06/26/18 18:05 06/26/18 18:05 Vital Signs Reviewed: Yes Appearance: Positive: Well-Appearing Skin: Positive: Warm, Dry Head/Face: Positive: Normal Head/Face Inspection Eyes: Positive: Normal, EOMI, LASHON, Conjunctiva Clear ENT: Positive: Pharynx normal, TMs normal Dental: Positive: Other - tenderness and edema left jaw, erythema to gum line Neck: Positive: Tenderness @ - cervical, Enlarged Nodes @ - cervical Respiratory/Lung Sounds: Positive: Clear to Auscultation, Breath Sounds Present Cardiovascular: Positive: Normal, RRR Musculoskeletal: Positive: Normal Neurological: Positive: Normal Psychiatric: Positive: Normal Diagnostics - Vital Signs Vital Signs Temp Pulse Resp BP Pulse Ox 06/26/18 18:05 97.8 F 80 14 149/101 97 - Laboratory Lab Results: Lab Results 06/26/18 06/26/18 06/26/18 Range/Units 18:34 18:34 18:34 WBC 5.9 (3.5-10.8) 10^3/ul RBC 4.70 (4.00-5.40) 10^6/ul Hgb 14.4 (14.0-18.0) g/dl Hct 42 (42-52) % MCV 90 (80-94) fL MCH 31 (27-31) pg MCHC 34 (31-36) g/dl RDW 14 (10.5-15) % Plt Count 229 (150-450) 10^3/ul MPV 7.5 (7.4-10.4) um3 Neut % (Auto) 69.6 (38-83) % Lymph % (Auto) 16.6 L (25-47) % [place] % (Auto) 9.5 H (0-7) % Eos % (Auto) 3.4 (0-6) % Baso % (Auto) 0.9 (0-2) % Absolute Neuts (auto) 4.1 (1.5-7.7) 10^3/ul Absolute Lymphs (auto) 1.0 (1.0-4.8) 10^3/ul Absolute Monos (auto) 0.6 (0-0.8) 10^3/ul Absolute Eos (auto) 0.2 (0-0.6) 10^3/ul Absolute Basos (auto) 0.1 (0-0.2) 10^3/ul Absolute Nucleated RBC 0 10^3/ul Nucleated RBC % 0.1 Sodium 140 (135-145) mmol/L Potassium 4.4 (3.5-5.0) mmol/L Chloride 108 (101-111) mmol/L Carbon Dioxide 27 (22-32) mmol/L Anion Gap 5 (2-11) mmol/L BUN 21 (6-24) mg/dL Creatinine 1.16 (0.67-1.17) mg/dL Est GFR ( Amer) 78.5 (>60) Est GFR (Non-Af Amer) 64.9 (>60) BUN/Creatinine Ratio 18.1 (8-20) Glucose 93 (70-100) mg/dL Lactic Acid 0.9 (0.5-2.0) mmol/L Calcium 9.3 (8.6-10.3) mg/dL Total Bilirubin 0.50 (0.2-1.0) mg/dL AST 22 (13-39) U/L ALT 27 (7-52) U/L Alkaline Phosphatase 91 (34-104) U/L C-Reactive Protein 28.33 H (<8.01) mg/L Total Protein 7.0 (6.4-8.9) g/dL Albumin 4.4 (3.2-5.2) g/dL Globulin 2.6 (2-4) g/dL Albumin/Globulin Ratio 1.7 (1-3) Result Diagrams: 06/26/18 18:34 06/26/18 18:34 Lab Statement: Any lab studies that have been ordered have been reviewed, and results considered in the medical decision making process. - CT neck CT Interpretation: No Acute Changes CT Interpretation Completed By: Radiologist EENT Course/Dx - Course Course Of Treatment: 57-year-old male presents with facial swelling for past couple days. He states he was seen his primary told that he has a salivary gland infection. Placed on penicillin. He states he's had this before and was treated with penicillin but never this much swelling. He states that he was seen again today and told to come to the ED. He states today he noticed more swelling to the area. He denies any dental pain. He denies any Fevers. No chest pain or shortness breath. No difficulty swelling. Has not been drooling more. No change with heat or cold with the pain. No pain or swelling on the Ice. He has history of A. fib. on exam has edema noted to left side of face. some lymphadenopathy noted. labs wnl. CT normal. dr valentino saw patient and states likely dental abscess causing swelling told to place on pcn and flagyl. told patient to follow up with dentist. patient understand and agrees with plan. - Differential Diagnoses Differential Diagnoses: Dental Abscess, Other - siladenitis. sialiathesis - Diagnoses Provider Diagnoses: Facial swelling Discharge - Sign-Out/Discharge Documenting (check all that apply): Patient Departure - Discharge Plan Condition: Good Disposition: HOME Prescriptions: metroNIDAZOLE [Flagyl 500 MG TAB] 500 mg PO BID #19 tab Penicillin VK TAB* [Penicillin VK 250 mg Tab*] 500 mg PO QID #39 tab Patient Education Materials: Dental Abscess (ED) Referrals: Dipesh Mead MD [Primary Care Provider] - Additional Instructions: Take antibiotics: penicillin 4 times a day for 10 days, first dose given in ED take flagyl twice a day for 10 days Use ibuprofen or tyenlol every 6 hours Avoid hard, crunchy food until seen by dentist Follow up with dentist as soon as possible Return to ED if develop fever, shortness of breath, pain with eye movement or swelling around eye - Billing Disposition and Condition Condition: GOOD Disposition: Home
--- NOTE | 2018-06-26 20:38 | RAD ---
EXAM: CT Neck With Intravenous Contrast CLINICAL HISTORY: 57 years old, male; Signs and symptoms; Mass, lump, or swelling in neck; Prior surgery; Additional info: Left side neck swelling, possible salivary stone? TECHNIQUE: Axial computed tomography images of the neck with intravenous contrast. All CT scans at this facility use at least one of these dose optimization techniques: automated exposure control; mA and/or kV adjustment per patient size (includes targeted exams where dose is matched to clinical indication); or iterative reconstruction. Coronal and sagittal reformatted images were created and reviewed. CONTRAST: 50 mL of OMNIPAQUE 300 administered intravenously. COMPARISON: NECK WITH CT SOFT TISSUE NECK W 07/30/2011 4:03 PM FINDINGS: Oropharynx: Normal. No tonsillar enlargement. No peritonsillar fluid collections. Hypopharynx: Normal. No retropharyngeal collections. Larynx: Normal. Normal epiglottis. Trachea: Normal. Retropharyngeal space: Normal. Submandibular/parotid glands: Normal. Glands are normal in size. No mass. Thyroid: Normal. No enlarged or calcified nodules. Bones/joints: No acute fracture. No suspicious osseous lesions. Soft tissues: Normal. Vasculature: The vasculature demonstrates diffuse mild atherosclerotic calcification. Lymph nodes: Normal. No lymphadenopathy. Lung apices: Normal as visualized. IMPRESSION: No CT findings to correlate with patient's symptomatology. Specifically no sialoliths.
[2018-06-26] MEDS ORDERED: Penicillin VK TAB* 250 MG PO ONE (20:56)
[2018-06-26] MEDS ORDERED: metroNIDAZOLE TAB* 250 MG PO ONE (20:56)
[2018-06-26 22:34] VITALS: BP 136/75
== END 2018-06-26 22:34 | disposition home or self-care (01) ==
LOC: ED 15:02
DX: R60.0 Localized edema (principal); R51 Headache; R68.84 Jaw pain
CPT/HCPCS: 36415; 70491; 80053; 83605; 85025; 86140; 99282; A9270-GY; Q9967

== ENCOUNTER 2019-11-05 11:21 | Inpatient (IN) | payer BC ==
[2019-11-05] MEDS ORDERED: Heparin(*) 1000 UNIT/ML 10 ML VIAL CATH LAB IV ONE (11:28)
[2019-11-05] MEDS ORDERED: nitroGLYCERIN DRIP* 25,000 MCG/250 ML BTL ONE (11:28)
[2019-11-05] MEDS ORDERED: Heparin 2 UNITS/ML IVPREMIX* 2,000 ML IV ONE (11:28)
[2019-11-05] MEDS ORDERED: Midazolam* 1 MG/ML 5 ML VIAL (5 MG) ONE (11:28)
[2019-11-05] MEDS ORDERED: VERAPAMIL 2.5 MG/ML 2 ML VIAL ** 5 mg/2 ml ONE (11:28)
[2019-11-05] MEDS ORDERED: fentaNYL* 50 MCG/ML 2 ML VIAL (100 MCG VIAL) ONE (11:28)
[2019-11-05] MEDS ORDERED: Lidocaine 1% INJ* 10 MG/ML 30 ML SDV ONE (11:29)
[2019-11-05] MEDS ORDERED: Iohexol 350 (CONTRAST) 200 ML MDV IV ONE (11:29)
--- NOTE | 2019-11-05 11:33 | ED ---
HPI Cardiac - HPI Summary HPI Summary: Patient is a 59 y/o M w/ Hx of HTN, HLD, and afib who presents to [facility] via EMS for STEMI. It is reported that the patient was doing some heavy lifting a few days ago and experienced some onset of some substernal chest pain. This morning , 11/05/19, patient's chest pain significantly worsened. CP is characterized as a stabbing sensation. No radiation of pain is noted. EMS was called. Initial EKG did not show STEMI, but subsequent EMS EKGs showed onset of STEMI. EMS administered 3 nitro with decrease in patient's pain from 9/10 to 7/10 in severity. BP by EMS was 200s/100s. CP is still present upon EMS arrival to ED. Patient is on Pradaxa. NKDA reported. STEMI was called at 1115, EMS arrived at 1121, Dr. Murillo in ED to evaluated at 1122. Pt does not report any fever, chills, erythema of eyes, sore throat, SOB, cough, abdominal pain, N/V, dysuria , hematuria, myalgia, edema, rash, or dizziness. Home medications and allergies are reviewed. - History of Current Complaint Stated Complaint: STEMI PER EMS Hx Obtained From: Patient, EMS Onset/Duration: Still Present Timing: Constant Initial Severity: Severe Current Severity: Severe Pain Scale Used: 0-10 Numeric Chest Pain Location: Lower Sternal Chest Pain Radiates: No Character: Sharp/Stabbing Alleviating Factor(s): NTG 123 Associated Signs and Symptoms: Positive: Chest Pain - Allergy/Home Medications Allergies/Adverse Reactions: Allergies Allergy/AdvReac Type Severity Reaction Status Date / Time No Known Allergies Allergy Verified 06/26/18 18:10 PMH/Surg Hx/FS Hx/Imm Hx Endocrine/Hematology History: Denies: Hx Diabetes Cardiovascular History: Reports: Hx Atrial Fibrillation, Hx Hypercholesterolemia , Hx Hypertension Denies: Hx Pacemaker/ICD History: Denies: Hx Renal Disease Sensory History: Denies: Hx Hearing Aid Psychiatric History: Denies: Hx Panic Disorder - Surgical History Surgery Procedure, Year, and Place: CYST REMOVED LT SIDE OF FACE 2011 AT [facility] – [place]. DEVIATED SEPTUM. HERNIA X2 Infectious Disease History: Denies: Traveled Outside the [place] in Last 30 Days - Family History Known Family History: Positive: Other - prostate cancer - Social History Alcohol Use: None Substance Use Type: Reports: None Smoking Status (MU): Never Smoked Tobacco Review of Systems Negative: Fever - on vitals, temp is 98.3 F , Chills Negative: Erythema Negative: Sore Throat Positive: Chest Pain Negative: Shortness Of Breath, Cough Negative: Abdominal Pain, Vomiting, Nausea Negative: dysuria, hematuria Negative: Myalgia, Edema Negative: Rash Neurological: Other - NEGATIVE - DIZZINESS All Other Systems Reviewed And Are Negative: Yes Physical Exam - Summary Physical Exam Summary: General: Well appearing, no distress Cardiovascular: Skin is well perfused Pulmonary: No respiratory distress, no tachypnea Abdomen: Non-distended Skin: Diaphoretic, pink, dry Psych: Normal affect Neuro: A&Ox3 Triage Information Reviewed: Yes Vital Signs Reviewed: Yes Procedures - Sedation Patient Received Moderate/Deep Sedation with Procedure: No Disposition - Course Course Of Treatment: Patient is a 59 y/o M w/ Hx of HTN, HLD, and afib who presents to [facility] via EMS for STEMI. It is reported that the patient was doing some heavy lifting a few days ago and experienced some onset of some substernal chest pain. This morning, 11/05/19, patient's chest pain significantly worsened. EMS was called. Initial EKG did not show STEMI, but subsequent EMS EKGs showed onset of STEMI. EMS administered 3 nitro with decrease in patient's pain from 9/ 10 to 7/10 in severity. BP by EMS was 200s/100s. CP is still present upon EMS arrival to ED. Patient is on Pradaxa. STEMI was called at 1115, EMS arrived at 1121, Dr. Murillo in ED to evaluated at 1122. On exam, patient is noted to be diaphoretic. Patient was accepted by Dr. Murillo for [facility] admission almost immediately upon arrival, all medical management to be done in [facility]. - Diagnoses Provider Diagnoses: STEMI (ST elevation myocardial infarction) - Physician Notifications Discussed Care Of Patient With: Yahir Murillo Time Discussed With Above Provider: 11:22 Instructed by Provider To: Other - Dr. Murillo in ED to evaluate the patient, he accepts the patient for admission to [facility]. Discharge ED - Sign-Out/Discharge Documenting (check all that apply): Patient Departure - admit - Discharge Plan Condition: Guarded Disposition: ADMITTED TO [facility] Referrals: Dipesh Mead MD [Primary Care Provider] - - Attestation Statements Document Initiated by Scribe: Yes Documenting Scribe: YANY MARKS Provider For Whom Scribe is Documenting (Include Credential): SOFYA LOPEZ MD Scribe Attestation: IYANY, scribed for SOFYA LOPEZ MD on 11/05/19 at 1200. Status of Scribe Document: Ready
[2019-11-05] MEDS ORDERED: Ticagrelor* 90 MG TAB PO ONE (11:36)
[2019-11-05] MEDS ORDERED: Bivalirudin(*) 250 MG VIAL ONE ×2 (11:45→11:58)
[2019-11-05 11:56] LABS: Hematocrit 45 % (42-52); Hemoglobin 15.7 g/dL (14.0-18.0); Mean Corpuscular HGB Conc 35 g/dL (31-36); Mean Corpuscular Hemoglobin 31 pg (27-31); Mean Corpuscular Volume 89 fL (80-94); Mean Platelet Volume 8.1 fL (7.4-10.4); Platelet Count 202 10^3/uL (150-450); Red Blood Count 5.08 10^6 /uL (4.18-5.48); Red Cell Distribution Width 15 % (10-15); White Blood Count 8.3 10^3/uL (3.5-10.8)
[2019-11-05 12:04] LABS: Activated Partial Thrombo Time 42.4 seconds (26.0-38.0); INR 1.05 (0.82-1.09)
[2019-11-05 12:15] LABS: ALT 21 U/L (7-52); AST 21 U/L (13-39); Albumin 4.4 g/dL (3.2-5.2); Albumin/Globulin Ratio 1.8 (1-3); Alkaline Phosphatase 74 U/L (34-104); Anion Gap 7 mmol/L (2-11); BUN/Creatinine Ratio 15.7 (8-20); Blood Urea Nitrogen 18 mg/dL (6-24); CO2 Carbon Dioxide 25 mmol/L (22-32); Calcium 9.4 mg/dL (8.6-10.3); Chloride 105 mmol/L (101-111); Creatine Kinase 74 U/L (10-223); EGFR African American 78.8 (>60); EGFR Non-African American 65.1 (>60); Globulin 2.5 g/dL (2-4); Glucose 124 mg/dL (70-100); LDL Cholesterol Direct 125 mg/dL; Potassium 4.2 mmol/L (3.5-5.0); Sodium 137 mmol/L (135-145); Total Protein 6.9 g/dL (6.4-8.9)
[2019-11-05 12:19] LABS: Myoglobin 88.5 ng/mL (17.4-105.7)
[2019-11-05 12:20] LABS: CKMB ng/mL 5.7 ng/mL (0.6-6.3)
[2019-11-05] MEDS ORDERED: Ondansetron INJ* 2 MG/ML VIAL IV PRN (12:33)
[2019-11-05] MEDS ORDERED: Acetaminophen TAB* 325 MG PO PRN (12:33)
[2019-11-05] MEDS ORDERED: Nitroglycerin TAB 0.4 MG* 0.4 MG TAB SL PRN (12:33)
[2019-11-05] MEDS ORDERED: Docusate CAP* 100 MG PO PRN (12:33)
[2019-11-05] MEDS ORDERED: Zolpidem TAB* 5 MG PO PRN (12:33)
[2019-11-05] MEDS ORDERED: Atorvastatin* 80 MG TAB PO ONE (12:43)
[2019-11-05] MEDS ORDERED: NS 0.9% 1000 ML** 1,000 ML IV SCH (12:45)
[2019-11-05] MEDS ORDERED: Pantoprazole TAB * 40 MG TAB PO ONE (14:25)
--- NOTE | 2019-11-05 16:10 | HP ---
CC: Dr. Jeremie Ring, [facility]; Dr. Dipesh Mead * ADMISSION HISTORY AND PHYSICAL: DATE OF ADMISSION: 11/05/19 CHIEF COMPLAINT: The patient presents now via the emergency medical services with a STEMI alert called in the field with chest discomfort. 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 He has a history of a nonischemic cardiomyopathy dating back to 2010 with recovery to some degree with most recent EF of 45% to 50% on an echo from 2019. He has a history of chronic atrial fibrillation and has been on Pradaxa b.i.d. and is scheduled to transition over to Xarelto once his Pradaxa pills run out at home. His symptoms seemed to start last night when he had lifted 2 bags of wood pellets and developed a chest discomfort in the center of his chest. It eventually went away after a short period of time. This morning at 7:30, he had recurrent symptoms occurring without exertion. At 10:30, he had a very bad spell, again with symptoms of chest heaviness sensation with left arm discomfort /numbness. He went outside and vomited as well, he was apparently diaphoretic. He initially went over to his relative's house and then proceeded to go back home to change clothes before they finally called the paramedics. Initial EKG had mild ST segment changes, but not completely definitive for a STEMI alert. En route, however, he did have a repeat EKG that demonstrated further ST segment elevation in the early precordial leads and more prominent in aVL with reciprocal changes. STEMI alert was called. In the emergency room, we saw him while on the stretcher for the paramedics, he was still symptomatic. The decision was made to do an ED bypass. The risks and benefits of cardiac catheterization were explained to him. He understood them, wished to proceed. We brought him to the manager cath lab and I did a quick exam on him before placing him on the manager cath lab table. PAST MEDICAL HISTORY: Significant for chronic atrial fibrillation, history of hypertension. He has thoracic aortic ectasia with a remote history of cardiomyopathy as mentioned. FAMILY HISTORY: His mother had CAD. SOCIAL HISTORY: He does not smoke. He denies significant alcohol intake. REVIEW OF SYSTEMS: Pertinent proceeding to the cardiovascular laboratory. The patient has no history of hematochezia, hematemesis, or hematuria. No history of stroke or CVA. No history of kidney disease and no allergy to contrast that he was aware of. PHYSICAL EXAMINATION VITAL SIGNS: When we had him in the catheterization laboratory, blood pressure was in the 120 to 130 range, pulses irregularly irregular in the 80s to 110s. NECK: Supple. No increased JVP. LUNGS: Clear to A and P without active rales, rhonchi, or wheezes. HEART: Revealed no visible heaves. No palpable heaves or thrills. Chest size was enlarged. Heart sounds were somewhat distant. Irregularly irregular rhythm was noted. No significant systolic or diastolic murmur, but in general heart sounds were distant. ABDOMEN: Obese. EXTREMITIES: Heavy in nature, but no nicole pitting edema . Peripheral pulses were intact. MUSCULOSKELETAL: The patient moves all extremities appropriate. NEUROLOGIC: The patient alert, oriented with normal mentation. PSYCHOLOGICAL: The patient with appropriate affect. DIAGNOSTIC STUDIES/LAB DATA: Electrocardiogram from the emergency medical services as described above with the most impressive changes on the repeat EKG showing ST elevation in aVL, V1, and V2 with more prominent reciprocal changes in the inferior apical leads. OVERALL ASSESSMENT: Ubaldo presents now in the throes of an acute probable anterolateral wall myocardial infarction. He is currently on Pradaxa for his atrial fibrillation and as such we will most likely utilize Angiomax bolus for anti-coagulant agent. We will give him 180 mg Brilinta crushed. He has already received aspirin therapy. We will draw his labs as well in the manager cath lab. Further management will be made pending the results. We will assess the right radial artery as the possible choice for the procedure given especially that he is on Pradaxa and the better use of controlling bleeding. As mentioned earlier, he understands the risks and benefits and does wish to proceed. [id number]/[facility] #: [id number] [facility]UM[facility]
[2019-11-05] MEDS ORDERED: Metoprolol Succinate XL TAB* 50 MG PO ONE (16:39)
--- NOTE | 2019-11-05 18:14 | CATH ---
CC: Dr. Jeremie Ring, [facility]; Dr. Dipesh Mead * CARDIAC CATHETERIZATION AND INTERVENTIONAL REPORT: DATE OF PROCEDURE: 11/05/19 INDICATION FOR PROCEDURE: The patient with an acute ST-segment elevation anterior/anterolateral myocardial infarction. The patient with prior history of nonischemic cardiomyopathy in 2010 with no significant coronary artery disease. History of chronic atrial fibrillation, on Pradaxa therapy. PROCEDURE: Coronary arteriography, primary stenting of the proximal left anterior descending artery utilizing a 3.5 x 16 mm long Synergy drug-eluting stent post dilated to 3.6 to 3.7 mm, left heart catheterization, left ventriculography. CONSENT: The patient was interviewed and examined briefly in the emergency room on the emergency medical services stretcher. The risks and benefits of cardiac catheterization were explained. He understood them and wished to proceed, and as such, he was an ED bypass patient. APPROACH UTILIZED: The right radial artery was assessed by ultrasound for size and was found to be acceptable for an approach. PRE-CARDIAC CATHETERIZATION LABORATORY RESULTS: None present at the time of starting the case. During the case, results came back - hemoglobin and hematocrit of 15.7 and 45 with a platelet count of 202,000. BUN and creatinine of 18 and 1.15. Sodium 137, potassium 4.2, chloride 105, bicarb 25. Troponin 0.10. EQUIPMENT UTILIZED: 1. Right radial artery sheath - 6-Kazakh Glidesheath Slender. 2. Diagnostic coronary catheter was a 5-Kazakh radial TIG 4.5 curve catheter. 3. Diagnostic wire utilized was a Ruiz 260 length guidewire for catheter introduction and exchange of catheters. 4. Guiding view catheter utilized was a VL4 curve guide catheter. 5. The interventional guidewire utilized was a 190 cm All Star wire. 6. The stent utilized was a 3.5 x 16 mm Synergy drug-eluting stent. 7. Post stent deployment balloon catheter was a 3.5 x 12 mm long NC Emerge balloon. 8. The left heart catheterization catheter was a 5-Kazakh PIG short radial catheter. 9. The closure device utilized was a long Vasc Band by [employer]. MEDICATIONS GIVEN DURING THE CARDIAC CATHETERIZATION: 1. The patient received a radial artery cocktail including 300 mcg of nitroglycerin and 3 mg of verapamil. 2. The patient received an Angiomax bolus and Angiomax drip was started. 3. Brilinta 180 mg was given orally and chewed. 4. 1 mg of Versed was given. 5. The patient had already received aspirin. DESCRIPTION OF PROCEDURE: The patient was brought to the cardiovascular laboratory where a formal time-out was performed. He was prepped and draped in sterile fashion. Prior to being prepped and draped, the right radial artery was assessed by ultrasound and found to be an acceptable size, and as such, this was the approach utilized. Once prepped and draped in sterile fashion, the right radial artery area was anesthetized with 1% lidocaine. The right radial artery area was cannulated under ultrasound guidance and the sheath was placed. Diagnostic coronary arteriography was performed. The decision was then made to intervene in the critically stenosed proximal to mid LAD (defined as mid because of the lesion being after a very high first diagonal branch). The patient had already been bolused and started on the Angiomax drip and had already received the Brilinta and aspirin therapy. Guiding views were obtained and the guidewire was placed followed by stent deployment and post deployment high pressure balloon inflations. After this, the artery was assessed both with the wire in place and wire removed. Following this, left heart catheterization was performed and left ventriculography utilizing a total of 28 cc of Omnipaque dye at a rate of 14 cc per second. At the end of the case, the catheter and sheath were removed and hemostasis was obtained with a Vasc Band. The reverse Barbeau was a B. The total contrast used for the case was 115 cc of Omnipaque dye. The radiation exposure included 9 minutes of fluoro time. The air kerma radiation was 2523 milligray. The DAP radiation was 14,865 microgray per meter squared. RESULTS: HEMODYNAMIC DATA: Left heart catheterization revealed central aortic pressure of 127/84 with a mean of 103, left ventricular pressure 123 over left ventricular end-diastolic pressure of 7. LEFT VENTRICULOGRAPHY: Performed in the SMITH projection revealed [id number] hypokinesis of the left ventricle in the SMITH projection involving the mid anterior, anteroapical, apical, and distal inferior wall. There was mild hypokinesis of the mid inferior wall with preservation of the proximal inferior wall and the very high proximal anterior wall. Overall ejection fraction in this view was estimated at 25% . Of note, the posterior wall movement and its contributory effect to the overall left ventricular ejection fraction is not well assessed in this view (the patient will be getting an echocardiogram within the next 24 to 48 hours for further assessment). CORONARY ARTERIOGRAPHY: A. Right coronary artery - a dominant vessel supplying a PDA and 1 thin posterior left ventricular branch. The proximal portion had mild narrowing noted. Just after the right coronary turned onto the inferior surface of the heart, there was an area of long diffuse disease with a maximal degree of narrowing noted to be approximately 45% to 50%. Past this point, the proximal portion of the posterior descending artery had a 65% to 70% narrowing noted. B. Left coronary artery: 1. Left main - fairly short in nature with no significant obstruction noted. 2. Left anterior descending artery. The proximal to mid left anterior descending artery after the takeoff of a very high first posteriorly directed diagonal branch had a critical hazy 90% lesion. NICHOLE 2.5 to 3 flow on the first injection and NICHOLE 3 flow on all other injections was noted down the left anterior descending artery. The rest of the left anterior descending artery had mild 25% to 30% narrowing seen in its mid portion and 25% narrowing in its distal portion. The diagonal branches did not show any significant obstructive disease. 3. Circumflex artery - a nondominant vessel supplying a thin first and second obtuse marginal branch with a medial sized third obtuse marginal branch followed by 2 smaller obtuse marginal branches with a low-lying posterior left ventricular branch of moderate size followed by a very small last posterolateral branch. There was very mild disease of 20% at most seen after the mid moderate size obtuse marginal branch. INTERVENTION INTO PROXIMAL TO MID LAD (defined as mid LAD due to takeoff after high first diagonal branch): Successful primary stenting of the LAD lesion with a 3.5 x 16 mm long Synergy drug-eluting stent post dilated to 3.6 to 3.7 mm with NICHOLE 3 flow with no dissection seen and a 5% residual narrowing noted. OVERALL ASSESSMENT: Significant coronary artery disease involving a critical lesion in the proximal to mid LAD as described above with successful intervention with primary stenting. Of note, the patient does have a borderline significant lesion in the proximal portion of the posterior descending artery from the right coronary artery, which will be evaluated at a later setting especially in light of the significant left ventricular systolic dysfunction (of note, the EF may actually be better than described given the fact that the posterior wall contribution is not well analyzed in the SMITH projection). This severe LV dysfunction could be secondary to ischemia(stunning), hopefully not infarction ( Enzymes will determine), versus a more chronic problem in addition such as rapid atrial fibrillation chronically or significant hypertension. The patient will be maintained on his high- dose beta-lazaro therapy and most likely we will have to increase the beta- lazaro therapy given the fact that we will not be reinstituting his diltiazem, which was also utilized for rate control of his atrial fibrillation. We will maintain him on his JENS inhibitor as well as continuing Brilinta and baby aspirin at least during the hospitalization. We will start him on Xarelto 15 mg a day given the results of the PIONEER atrial fibrillation/PCI trial. Most likely at the time of discharge, he will go home on the combination of Xarelto and Brilinta for a month, after which consideration could be made to switching the Brilinta to clopidogrel or continuing it for full 3 months and then switching it to clopidogrel for the long-term treatment. High-dose statin therapy will be immediately instituted and maintained. The patient does not smoke, and as such, we will not need to deal with smoking cessation. [id number]/[facility] #: [id number] AUTUMN
[2019-11-05 18:54] LABS: Creatine Kinase 302 U/L (10-223)
[2019-11-05 18:58] LABS: CKMB ng/mL 79.8 ng/mL (0.6-6.3)
[2019-11-05 19:02] LABS: Troponin I 8.39 ng/mL (<0.03)
[2019-11-05] MEDS: Ticagrelor* 90 MG TAB PO SCH (20:47)
[2019-11-05 23:59] LABS: Creatine Kinase 266 U/L (10-223)
[2019-11-06 00:05] LABS: CKMB ng/mL 63.9 ng/mL (0.6-6.3)
[2019-11-06 00:06] LABS: Troponin I 7.09 ng/mL (<0.03)
[2019-11-06 06:04] LABS: ABS Eosinophils 0.1 10^3/ul (0-0.6); ABS Lymphocytes 0.8 10^3/ul (1.0-4.8); ABS Monocytes 0.4 10^3/ul (0-0.8); ABS Neutrophils 4.4 10^3/ul (1.5-7.7); Eosinophil % 2.5 %; Hematocrit 47 % (42-52); Lymphocyte % 13.7 %; Mean Corpuscular HGB Conc 34 g/dL (31-36); Mean Corpuscular Hemoglobin 30 pg (27-31); Mean Corpuscular Volume 89 fL (80-94); Mean Platelet Volume 7.7 fL (7.4-10.4); Platelet Count 210 10^3/uL (150-450); Red Cell Distribution Width 15 % (10-15); White Blood Count 5.8 10^3/uL (3.5-10.8)
[2019-11-06 06:20] LABS: ALT 26 U/L (7-52); AST 51 U/L (13-39); Albumin 4.2 g/dL (3.2-5.2); Albumin/Globulin Ratio 1.7 (1-3); Alkaline Phosphatase 67 U/L (34-104); Anion Gap 8 mmol/L (2-11); BUN/Creatinine Ratio 16.9 (8-20); Blood Urea Nitrogen 15 mg/dL (6-24); CO2 Carbon Dioxide 24 mmol/L (22-32); Calcium 9.2 mg/dL (8.6-10.3); Chloride 106 mmol/L (101-111); Cholesterol 184 mg/dL; Creatine Kinase 204 U/L (10-223); EGFR African American 105.9 (>60); EGFR Non-African American 87.5 (>60); Globulin 2.5 g/dL (2-4); Glucose 98 mg/dL (70-100); LDL Cholesterol 121 mg/dL; Potassium 3.9 mmol/L (3.5-5.0); Sodium 138 mmol/L (135-145); Total Protein 6.7 g/dL (6.4-8.9); Triglycerides 142 mg/dL
[2019-11-06 06:25] LABS: CKMB ng/mL 48.5 ng/mL (0.6-6.3)
[2019-11-06] MEDS ORDERED: CMCS:Dabigatran CAP(NF) 150 MG CAP PO SCH (09:00)
[2019-11-06] MEDS: Lisinopril TAB* 10 MG PO SCH (09:05)
[2019-11-06] MEDS: Aspirin 81 mg CHEW TAB* 81 MG TAB.CHEW PO SCH (09:06)
[2019-11-06] MEDS: Ticagrelor* 90 MG TAB PO SCH ×2 (09:06→21:10)
[2019-11-06] MEDS: Pantoprazole TAB * 40 MG TAB PO SCH (09:06)
[2019-11-06] MEDS: Rivaroxaban TAB(*) 15 MG PO SCH (09:07)
[2019-11-06] MEDS: Metoprolol Succinate XL TAB* 200 MG TAB.XL PO SCH (09:09)
[2019-11-06] MEDS ORDERED: Metoprolol Succinate XL TAB* 100 MG PO ONE (21:00)
[2019-11-06] MEDS: Atorvastatin* 80 MG TAB PO SCH (21:11)
[2019-11-07] MEDS: Rivaroxaban TAB(*) 15 MG PO SCH (09:09)
[2019-11-07] MEDS: Pantoprazole TAB * 40 MG TAB PO SCH (09:09)
[2019-11-07] MEDS: Lisinopril TAB* 10 MG PO SCH (09:09)
[2019-11-07] MEDS: Ticagrelor* 90 MG TAB PO SCH ×2 (09:09→20:13)
[2019-11-07] MEDS: Aspirin 81 mg CHEW TAB* 81 MG TAB.CHEW PO SCH (09:09)
[2019-11-07] MEDS: Metoprolol Succinate XL TAB* 200 MG TAB.XL PO SCH ×2 (09:10→20:13)
[2019-11-07] MEDS: Spironolactone TAB* 25 MG PO SCH (10:25)
--- NOTE | 2019-11-07 11:11 | ECHO ---
*[facility]* [place] [address] Fax #: [phone] Transthoracic Echocardiogram Patient: Ubaldo Pedersen : 1960 Study Date: 11/07/2019 Age: 59 Gender: M HR: 87 bpm Height: 72 in /182.9 cm BSA: 2.21 m^2 Weight: 217.5 lb /98.9 kg BMI: 29.6 kg/m^2 *Front End Engineer: * Marleny Peña *Referring Physician: * Yahir Murillo MD *Reading Physician: * Toro Rodriguez MD Indications: Myocardial Infarction (new). History: Atrial fibrillation. PMH: Cardiomyopathy. Risk factors: Hypertension. Conclusions Summary: - Left ventricle: The cavity size is normal. Wall thickness is moderately increased. Systolic function is severely reduced. The estimated ejection fraction is 25%. diffuse hypokinesis with regional variations, motion best in inferolateral wall. - Right ventricle: The cavity size is normal. Systolic function is normal. - Left atrium: The atrium is moderately to severely dilated. - Aorta: The aorta is mildly dilated. There is dilation of the sinus(es) of Valsalva. The aortic root diameter is 4.7 cm. The ascending aorta internal dimension in the A-P direction, maximal systolic dimension is 3.9 cm. - Pulmonary arteries: Systolic pressure is within the normal range, estimated to be 22 mm Hg. Recommendations: Compared to prior study from 06/2019, left ventricular function was previously 45%. Study data: Transthoracic echocardiogram. Procedure: Transthoracic echocardiography was performed. Image quality was good. Complete 2D, spectral Doppler, and color flow Doppler. Location: ICU Patient status: Inpatient. Patient room number: 7. Rhythm: Atrial fibrillation. Findings Left ventricle: The cavity size is normal. Wall thickness is moderately increased. Systolic function is severely reduced. The estimated ejection fraction is 25%. diffuse hypokinesis with regional variations, motion best in inferolateral wall. Left ventricular diastolic function parameters are indeterminate. Right ventricle: The cavity size is normal. Systolic function is normal. Left atrium: The atrium is moderately to severely dilated. Right atrium: The atrium is dilated. Mitral valve: The valve is structurally normal. There is no evidence of stenosis. There is trace to mild regurgitation. Aortic valve: The valve is structurally normal. The valve is trileaflet. Cusp separation is normal. Transvalvular velocity is within the normal range. There is no evidence of stenosis. There is trace regurgitation. Tricuspid valve: The valve is structurally normal. The leaflets are normal thickness. There is no evidence of stenosis. There is trace regurgitation. Pulmonic valve: The valve is structurally normal. There is no evidence of stenosis. There is trace to mild regurgitation. Aorta: The aorta is mildly dilated. There is dilation of the sinus(es) of Valsalva. Pericardium: There is no significant pericardial effusion. Pulmonary arteries: Systolic pressure is within the normal range, estimated to be 22 mm Hg. Systemic veins: Inferior vena cava: The vessel is normal in size. There is (>= 50%) respiratory change in the IVC dimension. Pulmonary veins: The Pulmonary veins appear normal. Measurements Left ventricle Value Ref Aortic valve Value Ref SANTOS, LAX 5.3 cm 4.2 - Peak v, S 0.86 m/sec ----- 5.8 VTI, S 18.5 cm ----- ESD, LAX (H) 4.6 cm 2.5 - Mean grad, S 1.0 mm Hg ----- 4.0 Peak grad, S 3.0 mm Hg ----- FS, LAX (L) 13 % 25 - 43 DOLORES, VTI 2.51 cm^2 ----- PW, ED, LAX (H) 1.5 cm 0.6 - DOLORES, Vmax 2.96 cm^2 ----- 1.0 FS (L) 13 % 25 - 43 Mitral valve Value Ref Mid-wall FS 6 % -------- Peak E 0.53 m/sec ----- PW, ED (H) 1.5 cm 0.6 - Peak A 0.01 m/sec ----- 1.0 Decel time 348 ms ----- PW/ID, ED 0.28 -------- Peak E/A ratio 76 ----- E', lat joel, TDI (L) 6.6 cm/sec >=10.0 E/e', lat joel, TDI 8 -------- Pulmonic valve Value Ref E', med joel, TDI 10.6 cm/sec >=7.0 Peak v, S 0.62 m/sec ----- E/e', med joel, TDI 5 -------- Peak grad, S 2.0 mm Hg --- -- E', avg, TDI 8.6 cm/sec -------- E/e', avg, TDI 6 <=14 Tricuspid valve Value Ref TR peak v 2.06 m/sec <=2.8 LVOT Value Ref Peak RV-RA grad, S 17 mm Hg ----- Diam, S 2.10 cm -------- Max TR marisa 2.06 m/sec ----- Area 3.5 cm^2 -------- Peak marisa, S 0.74 m/sec -------- Aortic root Value Ref Mean grad, S 1 mm Hg -------- Root diam (H) 4.7 cm <4.3 SV 46 ml -------- Ascending aorta Value Ref Ventricular septum Value Ref AAo AP diam, S 3.9 cm ----- IVS, ED (H) 1.6 cm 0.6 - 1.0 Aortic arch Value Ref Arch diam 2.8 cm ----- Right ventricle Value Ref SANTOS, LAX 4.1 cm -------- Decending aorta Value Ref SANTOS minor ax, A4C (H) 3.6 cm 1.9 - Timi peak marisa 0.64 m/sec ----- mid 3.5 Inferior vena cava Value Ref Left atrium Value Ref Diam 2.2 cm ----- ML dim, A4C 5.5 cm -------- SI dim, A4C 7.4 cm -------- Vol/bsa, ES, 1-p (H) 65 ml/m^2 12 - 37 A4C Vol/bsa, ES, A/L (H) 68 ml/m^2 16 - 34 Right atrium Value Ref SI dim, ES (H) 5.8 cm 3.4 - 5.3 ML dim, ES, A4C 4.3 cm 2.6 - 4.4 SI dim, ES, A4C (H) 5.8 cm 3.4 - 5.3 Legend: (L) and (H) stefanie values outside specified reference range. Prepared and electronically signed by Toro Rodriguez MD 11/07/2019 11:10
[2019-11-07] MEDS ORDERED: Furosemide TAB* 20 MG ONE (11:13)
[2019-11-07] MEDS: Furosemide TAB* 20 MG PO SCH (11:17)
[2019-11-07] MEDS: Atorvastatin* 80 MG TAB PO SCH (20:13)
[2019-11-08 06:41] LABS: Calcium 9.4 mg/dL (8.6-10.3); EGFR African American 92.5 (>60); EGFR Non-African American 76.5 (>60); Potassium 4.2 mmol/L (3.5-5.0)
[2019-11-08] MEDS: Metoprolol Succinate XL TAB* 200 MG TAB.XL PO SCH (08:27)
[2019-11-08] MEDS: Lisinopril TAB* 10 MG PO SCH (08:27)
[2019-11-08] MEDS: Pantoprazole TAB * 40 MG TAB PO SCH (08:27)
[2019-11-08] MEDS: Spironolactone TAB* 25 MG PO SCH (08:27)
[2019-11-08] MEDS: Ticagrelor* 90 MG TAB PO SCH (08:28)
[2019-11-08] MEDS: Rivaroxaban TAB(*) 15 MG PO SCH (08:28)
[2019-11-08] MEDS: Furosemide TAB* 20 MG PO SCH (08:28)
[2019-11-08] MEDS: Aspirin 81 mg CHEW TAB* 81 MG TAB.CHEW PO SCH (08:28)
--- NOTE | 2019-11-08 10:46 | PN ---
Subjective Date of Service: 11/08/19 - s/p Anterior STEMI 11/05/2019, SHF Interval History: No events last night, patient reports mild dyspnea after taking Brilinta. No recurrent substernal chest pain since presentation. He reports he has been up and ambulating the halls with no difficulty. His mother is at his bedside. Offers no complaints at this time. Medications Active Medications: Acetaminophen (Tylenol Tab*) 650 mg PO Q4H PRN PRN Reason: PAIN - MILD Last Admin: 11/06/19 18:04 Dose: 650 mg Aspirin (Aspirin 81 Mg Chew Tab*) 81 mg PO DAILY [facility] Last Admin: 11/08/19 08:28 Dose: 81 mg Atorvastatin Calcium (Lipitor*) 80 mg PO BEDTIME [facility] Last Admin: 11/07/19 20:13 Dose: 80 mg Docusate Sodium (Colace Cap*) 100 mg PO DAILY PRN PRN Reason: CONSTIPATION Furosemide (Lasix Tab*) 20 mg PO DAILY [facility] Last Admin: 11/08/19 08:28 Dose: 20 mg Lisinopril (Prinivil Tab*) 40 mg PO DAILY [facility] Last Admin: 11/08/19 08:27 Dose: 40 mg Metoprolol Succinate (Toprol Xl Tab*) 200 mg PO BID [facility] Last Admin: 11/08/19 08:27 Dose: 200 mg Nitroglycerin (Nitroglycerin Tab 0.4 Mg*) 0.4 mg SL Q5M PRN PRN Reason: ANGINA Ondansetron HCl (Zofran Inj*) 4 mg IV Q4H PRN PRN Reason: NAUSEA Pantoprazole Sodium (Protonix Tab*) 40 mg PO DAILY [facility] Last Admin: 11/08/19 08:27 Dose: 40 mg Rivaroxaban (Xarelto(*)) 15 mg PO DAILY@0800 [facility] Last Admin: 11/08/19 08:28 Dose: 15 mg Spironolactone (Aldactone Tab*) 25 mg PO DAILY [facility] Last Admin: 11/08/19 08:27 Dose: 25 mg Ticagrelor (Brilinta*) 90 mg PO BID [facility] Last Admin: 11/08/19 08:28 Dose: 90 mg Zolpidem Tartrate (Ambien Tab*) 5 mg PO BEDTIME PRN PRN Reason: INSOMNIA Objective Vital Signs: Temp Pulse Resp BP Pulse Ox 97.8 F 64 15 143/97 98 11/08/19 03:16 11/08/19 08:00 11/08/19 08:00 11/08/19 08:00 11/08/19 08:00 Oxygen Devices in Use Now: None Appearance: Sitting upright in bed, NAD, A+O x3, cooperative Eyes: No Scleral Icterus, PERRLA Ears/Nose/Mouth/Throat: NL Teeth, Lips, Gums, Clear Oropharnyx Neck: NL Appearance and Movements; NL JVP, Trachea Midline Respiratory: Symmetrical Chest Expansion and Respiratory Effort, Clear to Auscultation Cardiovascular: NL Sounds; No Murmurs; No JVD, No Edema Extremities: No Edema, - - 3+ right radial artery, no thrill, non tender to palpation, no hematoma. Skin: No Rash or Ulcers Neurological: Alert and Oriented x 3 Lines/Tubes/Other Access: Clean, Dry and Intact Peripheral IV Laboratory Results: 11/06/19 05:43 11/08/19 05:27 INR (Anticoag Therapy) 1.05 (0.82-1.09) 11/05/19 11:36 APTT 42.4 seconds (26.0-38.0) H 11/05/19 11:36 Total Bilirubin 0.90 mg/dL (0.2-1.0) 11/06/19 05:43 AST 51 U/L (13-39) H 11/06/19 05:43 ALT 26 U/L (7-52) 11/06/19 05:43 Alkaline Phosphatase 67 U/L (34-104) 11/06/19 05:43 CK-MB (CK-2) 48.5 ng/mL (0.6-6.3) H 11/06/19 05:43 B-Natriuretic Peptide 513 pg/mL (<=100) H 11/08/19 05:27 Total Protein 6.7 g/dL (6.4-8.9) 11/06/19 05:43 Albumin 4.2 g/dL (3.2-5.2) 11/06/19 05:43 Globulin 2.5 g/dL (2-4) 11/06/19 05:43 Albumin/Globulin Ratio 1.7 (1-3) 11/06/19 05:43 Triglycerides 142 mg/dL 11/06/19 05:43 Cholesterol 184 mg/dL 11/06/19 05:43 LDL Cholesterol 121 mg/dL 11/06/19 05:43 HDL Cholesterol 35.0 mg/dL 11/06/19 05:43 11/05/19 11/05/19 11/05/19 11:36 18:28 23:26 Troponin I 0.10 H* 8.39 H* 7.09 H* 11/06/19 05:43 Troponin I 4.70 H* Laboratory Results - last 24 hr 11/08/19 11/08/19 05:27 05:27 Sodium 139 Potassium 4.2 Chloride 108 Carbon Dioxide 23 Anion Gap 8 BUN 31 H Creatinine 1.00 Est GFR ( Amer) 92.5 Est GFR (Non-Af Amer) 76.5 BUN/Creatinine Ratio 31.0 H Glucose 89 Calcium 9.4 B-Natriuretic Peptide 513 H Diagnostic Imaging: *[facility]* [place] [address] Fax #: [phone] Transthoracic Echocardiogram Patient: Bobby Pedersen : 1960 Study Date: 11/07/2019 Age: 59 Gender: M HR: 87 bpm Height: 72 in /182.9 cm BSA: 2.21 m^2 Weight: 217.5 lb /98.9 kg BMI: 29.6 kg/m^2 *Instructor Of Education: * Marleny Peña *Referring Physician: * Yahir Murillo MD *Reading Physician: * Toro Rodriguez MD Indications: Myocardial Infarction (new). History: Atrial fibrillation. PMH: Cardiomyopathy. Risk factors: Hypertension. Conclusions Summary: - Left ventricle: The cavity size is normal. Wall thickness is moderately increased. Systolic function is severely reduced. The estimated ejection fraction is 25%. diffuse hypokinesis with regional variations, motion best in inferolateral wall. - Right ventricle: The cavity size is normal. Systolic function is normal. - Left atrium: The atrium is moderately to severely dilated. - Aorta: The aorta is mildly dilated. There is dilation of the sinus(es) of Valsalva. The aortic root diameter is 4.7 cm. The ascending aorta internal dimension in the A-P direction, maximal systolic dimension is 3.9 cm. - Pulmonary arteries: Systolic pressure is within the normal range, estimated to be 22 mm Hg. Recommendations: Compared to prior study from 06/2019, left ventricular function was previously 45%. This report is only to be considered final once signed by the Provider(s) as displayed in the "<Electronically Signed by >" field (s). Absence of a signature indicates the report is in a draft status and still needs to be finalized. In the event this document was created by someone other than the signing Provider, the individual initiating the document will be listed in the "Entered by:" or "Dictated by:" lester. Cardiac Catheterization Report Patient: BOBBY PEDERSEN /Age: 12 1960 59 Medical Record#: [id number] Admission Date: 11/05/19 Provider: Yahir Murillo MD CC: Dr. Jeremie Ring, [facility]; Dr. Dipesh Mead * CARDIAC CATHETERIZATION AND INTERVENTIONAL REPORT: DATE OF PROCEDURE: 11/05/19 INDICATION FOR PROCEDURE: The patient with an acute ST-segment elevation anterior/anterolateral myocardial infarction. The patient with prior history of nonischemic cardiomyopathy in 2010 with no significant coronary artery disease. History of chronic atrial fibrillation, on Pradaxa therapy. PROCEDURE: Coronary arteriography, primary stenting of the proximal left anterior descending artery utilizing a 3.5 x 16 mm long Synergy drug-eluting stent post dilated to 3.6 to 3.7 mm, left heart catheterization, left ventriculography. CONSENT: The patient was interviewed and examined briefly in the emergency room on the emergency medical services stretcher. The risks and benefits of cardiac catheterization were explained. He understood them and wished to proceed, and as such, he was an ED bypass patient. APPROACH UTILIZED: The right radial artery was assessed by ultrasound for size and was found to be acceptable for an approach. PRE-CARDIAC CATHETERIZATION LABORATORY RESULTS: None present at the time of starting the case. During the case, results came back - hemoglobin and hematocrit of 15.7 and 45 with a platelet count of 202,000. BUN and creatinine of 18 and 1.15. Sodium 137, potassium 4.2, chloride 105, bicarb 25. Troponin 0.10. EQUIPMENT UTILIZED: 1. Right radial artery sheath - 6-[place] Glidesheath Slender. 2. Diagnostic coronary catheter was a 5-[place] radial TIG 4.5 curve catheter. 3. Diagnostic wire utilized was a Ruiz 260 length guidewire for catheter introduction and exchange of catheters. 4. Guiding view catheter utilized was a VL4 curve guide catheter. 5. The interventional guidewire utilized was a 190 cm All Star wire. 6. The stent utilized was a 3.5 x 16 mm Synergy drug-eluting stent. 7. Post stent deployment balloon catheter was a 3.5 x 12 mm long NC Emerge balloon. 8. The left heart catheterization catheter was a 5-[place] PIG short radial catheter. 9. The closure device utilized was a long Vasc Band by [employer]. MEDICATIONS GIVEN DURING THE CARDIAC CATHETERIZATION: 1. The patient received a radial artery cocktail including 300 mcg of nitroglycerin and 3 mg of verapamil. 2. The patient received an Angiomax bolus and Angiomax drip was started. 3. Brilinta 180 mg was given orally and chewed. This report is only to be considered final once signed by the Provider(s) as displayed in the "<Electronically Signed by >" field (s). Absence of a signature indicates the report is in a draft status and still needs to be finalized. In the event this document was created by someone other than the signing Provider, the individual initiating the document will be listed in the "Entered by:" or "Dictated by:" lester. 1 of 3 EKG Data: 11/08/2019; Afib rate 74 with anterolateral TWI most noticeable in lateral leads with associated ST depression c/w prior ECG. 11/05/2019 ECG; Afib rate 86, ST elevation in V1-v3 with new TWI in lead V5-V5. Telemetry; reviewed 11/07-11/08 AFib rate 40-50 while asleep with periods in low 100 's with activity. Assessment/Plan #1 s/p Anterior STEMI 11/05/2019 resulted in 3.5x16 mm GÓMEZ to Proximal LAD. He has a known residual 65-70% PDA lesion being medically managed at this time. Troponin peaked at 8.3 11/05/2019. LVEF now 20-25%. To be fitted for lifevest today. He is on ASA 81/day in combination with Brilinta 90mg PO BID. He has a h/o Perm AF, now on Xarelto 15mg/day. Will speak with Dr. Schaefer DAPT regimen given patient is on Xarelto therapy. It may not be unreasonable to Transition to Plavix 75/day in combination with Xarelto 15mg/day. He will need close follow up care for assessment of residual PDA lesion. #2 ICM; LVEF 20-25%. Compensated on exam. Now on Toprol 200mg PO BID, Lisinopril 40mg/day, Aldactone 25mg/day. Lifevest to be fitted today. We can consider transitioning from ACEI to Entresto outpatient. #3 h/o Perm AF with labile heart rate control. Rates improved with higher dose Toprol, he continues to have periods with ventricular rate in low 100's with minimal activity. He is now on Toprol 200mg/day. CCB discontinued due to severe LV dysfunction. He should have an outpatient 24 hour holter to assess ventricular rate to ensure adequate rate control. Will consider Dig therapy in the future. Chads Vasc >2 now on Xarelto 15mg/day. #4 h/o Uncontrolled HTN; SBP 178 upon presentation. Current 120-130's. Will continue current therapy. He has a known 3.9cm ascending aortic aneurysm. Now on bblocker therapy. Recommend BP < 120/80 to prevent TTA expansion. #5 h/o HLD; LDL 121. Now on Lipitor 80QHS. Will need repeat FLP/LFT in 6 weeks time given high intensity statin initiation. #6 disposition pending course. Will transfer patient to [address] [place] [address]. DAPT will need to be addressed prior to discharge. Will update Dr. Schaefer. Attending: Luis E Schaefer
[2019-11-08] MEDS ORDERED: Spironolactone TAB* 25 MG PO ONE (11:15)
[2019-11-08] MEDS: Carvedilol TAB* 25 MG PO SCH (20:50)
[2019-11-08] MEDS: Atorvastatin* 80 MG TAB PO SCH (20:50)
[2019-11-08] MEDS ORDERED: Clopidogrel TAB* 300 MG PO ONE (21:00)
[2019-11-09] MEDS: Rivaroxaban TAB(*) 15 MG PO SCH (08:58)
[2019-11-09] MEDS: Lisinopril TAB* 10 MG PO SCH (08:58)
[2019-11-09] MEDS: Pantoprazole TAB * 40 MG TAB PO SCH (08:58)
[2019-11-09] MEDS: Carvedilol TAB* 25 MG PO SCH (08:58)
[2019-11-09] MEDS ORDERED: Spironolactone TAB* 25 MG PO SCH (09:00)
[2019-11-09] MEDS ORDERED: Clopidogrel TAB* 75 MG PO SCH (09:00)
[2019-11-09] MEDS: Furosemide TAB* 20 MG PO SCH (10:01)
[2019-11-09] MEDS ORDERED: Digoxin IV* 0.5 MG/2 ML AMP (0.25 MG/ML) IV SLOW PU ONE (10:15)
[2019-11-09 10:36] LABS: BUN/Creatinine Ratio 28.6 (8-20); Calcium 9.1 mg/dL (8.6-10.3); EGFR African American 87.5 (>60); EGFR Non-African American 72.3 (>60); Potassium 3.5 mmol/L (3.5-5.0)
--- NOTE | 2019-11-09 11:26 | PN ---
Subjective Date of Service: 11/09/19 - anterior STEMI, AF with periods of RVR, SHF Interval History: No events last night, patient reports no symptoms. No recurrent substernal chest pain since presentation. He reports he has been up and ambulating the halls with no difficulty. His daughter in law is at his bedside. Periods of RVR (130's) noted on telemetry this morning. Fitted for lifevest last night. Medications Active Medications: Acetaminophen (Tylenol Tab*) 650 mg PO Q4H PRN PRN Reason: PAIN - MILD Last Admin: 11/06/19 18:04 Dose: 650 mg Atorvastatin Calcium (Lipitor*) 80 mg PO BEDTIME [facility] Last Admin: 11/08/19 20:50 Dose: 80 mg Carvedilol (Coreg Tab*) 25 mg PO BID [facility] Last Admin: 11/09/19 08:58 Dose: 25 mg Clopidogrel Bisulfate (Plavix Tab*) 75 mg PO DAILY [facility] Last Admin: 11/09/19 08:58 Dose: 75 mg Docusate Sodium (Colace Cap*) 100 mg PO DAILY PRN PRN Reason: CONSTIPATION Lisinopril (Prinivil Tab*) 40 mg PO DAILY [facility] Last Admin: 11/09/19 08:58 Dose: 40 mg Nitroglycerin (Nitroglycerin Tab 0.4 Mg*) 0.4 mg SL Q5M PRN PRN Reason: ANGINA Ondansetron HCl (Zofran Inj*) 4 mg IV Q4H PRN PRN Reason: NAUSEA Pantoprazole Sodium (Protonix Tab*) 40 mg PO DAILY [facility] Last Admin: 11/09/19 08:58 Dose: 40 mg Rivaroxaban (Xarelto(*)) 15 mg PO DAILY@0800 [facility] Last Admin: 11/09/19 08:58 Dose: 15 mg Spironolactone (Aldactone Tab*) 50 mg PO DAILY [facility] Last Admin: 11/09/19 11:07 Dose: 50 mg Zolpidem Tartrate (Ambien Tab*) 5 mg PO BEDTIME PRN PRN Reason: INSOMNIA Objective Vital Signs: Temp Pulse Resp BP Pulse Ox 97.4 F 73 20 117/85 98 11/09/19 11:05 11/09/19 11:06 11/09/19 11:05 11/09/19 11:05 11/09/19 11:05 Oxygen Devices in Use Now: None Appearance: Sitting upright in bed, NAD, A+O x3, cooperative Eyes: No Scleral Icterus, PERRLA Ears/Nose/Mouth/Throat: NL Teeth, Lips, Gums, Clear Oropharnyx Neck: NL Appearance and Movements; NL JVP, Trachea Midline Respiratory: Symmetrical Chest Expansion and Respiratory Effort, Clear to Auscultation Cardiovascular: NL Sounds; No Murmurs; No JVD, No Edema Extremities: No Edema, - - 3+ right radial artery, no thrill, non tender to palpation, no hematoma. Skin: No Rash or Ulcers Neurological: Alert and Oriented x 3 Lines/Tubes/Other Access: Clean, Dry and Intact Peripheral IV Laboratory Results: 11/06/19 05:43 11/09/19 10:13 INR (Anticoag Therapy) 1.05 (0.82-1.09) 11/05/19 11:36 APTT 42.4 seconds (26.0-38.0) H 11/05/19 11:36 Total Bilirubin 0.90 mg/dL (0.2-1.0) 11/06/19 05:43 AST 51 U/L (13-39) H 11/06/19 05:43 ALT 26 U/L (7-52) 11/06/19 05:43 Alkaline Phosphatase 67 U/L (34-104) 11/06/19 05:43 CK-MB (CK-2) 48.5 ng/mL (0.6-6.3) H 11/06/19 05:43 B-Natriuretic Peptide 513 pg/mL (<=100) H 11/08/19 05:27 Total Protein 6.7 g/dL (6.4-8.9) 11/06/19 05:43 Albumin 4.2 g/dL (3.2-5.2) 11/06/19 05:43 Globulin 2.5 g/dL (2-4) 11/06/19 05:43 Albumin/Globulin Ratio 1.7 (1-3) 11/06/19 05:43 Triglycerides 142 mg/dL 11/06/19 05:43 Cholesterol 184 mg/dL 11/06/19 05:43 LDL Cholesterol 121 mg/dL 11/06/19 05:43 HDL Cholesterol 35.0 mg/dL 11/06/19 05:43 11/05/19 11/05/19 11/05/19 11:36 18:28 23:26 Troponin I 0.10 H* 8.39 H* 7.09 H* 11/06/19 05:43 Troponin I 4.70 H* Laboratory Results - last 24 hr 11/09/19 10:13 Sodium 137 Potassium 3.5 Chloride 107 Carbon Dioxide 22 Anion Gap 8 BUN 30 H Creatinine 1.05 Est GFR ( Amer) 87.5 Est GFR (Non-Af Amer) 72.3 BUN/Creatinine Ratio 28.6 H Glucose 132 H Calcium 9.1 Diagnostic Imaging: *[facility]* [place] [address] Fax #: [phone] Transthoracic Echocardiogram Patient: Bobby Pedersen : 1960 Study Date: 11/07/2019 Age: 59 Gender: M HR: 87 bpm Height: 72 in /182.9 cm BSA: 2.21 m^2 Weight: 217.5 lb /98.9 kg BMI: 29.6 kg/m^2 *Blanching Machine Operator: * Marleny Peña *Referring Physician: * Yahir Murillo MD *Reading Physician: * Toro Rodrgiuez MD Indications: Myocardial Infarction (new). History: Atrial fibrillation. PMH: Cardiomyopathy. Risk factors: Hypertension. Conclusions Summary: - Left ventricle: The cavity size is normal. Wall thickness is moderately increased. Systolic function is severely reduced. The estimated ejection fraction is 25%. diffuse hypokinesis with regional variations, motion best in inferolateral wall. - Right ventricle: The cavity size is normal. Systolic function is normal. - Left atrium: The atrium is moderately to severely dilated. - Aorta: The aorta is mildly dilated. There is dilation of the sinus(es) of Valsalva. The aortic root diameter is 4.7 cm. The ascending aorta internal dimension in the A-P direction, maximal systolic dimension is 3.9 cm. - Pulmonary arteries: Systolic pressure is within the normal range, estimated to be 22 mm Hg. Recommendations: Compared to prior study from 06/2019, left ventricular function was previously 45%. This report is only to be considered final once signed by the Provider(s) as displayed in the "<Electronically Signed by >" field (s). Absence of a signature indicates the report is in a draft status and still needs to be finalized. In the event this document was created by someone other than the signing Provider, the individual initiating the document will be listed in the "Entered by:" or "Dictated by:" lester. Cardiac Catheterization Report Patient: BOBBY PEDERSEN /Age: 12 1960 59 Medical Record#: [id number] Admission Date: 11/05/19 Provider: Yahir Murillo MD CC: Dr. Jeremie Ring, [facility]; Dr. Dipesh Mead * CARDIAC CATHETERIZATION AND INTERVENTIONAL REPORT: DATE OF PROCEDURE: 11/05/19 INDICATION FOR PROCEDURE: The patient with an acute ST-segment elevation anterior/anterolateral myocardial infarction. The patient with prior history of nonischemic cardiomyopathy in 2010 with no significant coronary artery disease. History of chronic atrial fibrillation, on Pradaxa therapy. PROCEDURE: Coronary arteriography, primary stenting of the proximal left anterior descending artery utilizing a 3.5 x 16 mm long Synergy drug-eluting stent post dilated to 3.6 to 3.7 mm, left heart catheterization, left ventriculography. CONSENT: The patient was interviewed and examined briefly in the emergency room on the emergency medical services stretcher. The risks and benefits of cardiac catheterization were explained. He understood them and wished to proceed, and as such, he was an ED bypass patient. APPROACH UTILIZED: The right radial artery was assessed by ultrasound for size and was found to be acceptable for an approach. PRE-CARDIAC CATHETERIZATION LABORATORY RESULTS: None present at the time of starting the case. During the case, results came back - hemoglobin and hematocrit of 15.7 and 45 with a platelet count of 202,000. BUN and creatinine of 18 and 1.15. Sodium 137, potassium 4.2, chloride 105, bicarb 25. Troponin 0.10. EQUIPMENT UTILIZED: 1. Right radial artery sheath - 6-[place] Glidesheath Slender. 2. Diagnostic coronary catheter was a 5-[place] radial TIG 4.5 curve catheter. 3. Diagnostic wire utilized was a Ruiz 260 length guidewire for catheter introduction and exchange of catheters. 4. Guiding view catheter utilized was a VL4 curve guide catheter. 5. The interventional guidewire utilized was a 190 cm All Star wire. 6. The stent utilized was a 3.5 x 16 mm Synergy drug-eluting stent. 7. Post stent deployment balloon catheter was a 3.5 x 12 mm long NC Emerge balloon. 8. The left heart catheterization catheter was a 5-[place] PIG short radial catheter. 9. The closure device utilized was a long Vasc Band by [employer]. MEDICATIONS GIVEN DURING THE CARDIAC CATHETERIZATION: 1. The patient received a radial artery cocktail including 300 mcg of nitroglycerin and 3 mg of verapamil. 2. The patient received an Angiomax bolus and Angiomax drip was started. 3. Brilinta 180 mg was given orally and chewed. This report is only to be considered final once signed by the Provider(s) as displayed in the "<Electronically Signed by >" field (s). Absence of a signature indicates the report is in a draft status and still needs to be finalized. In the event this document was created by someone other than the signing Provider, the individual initiating the document will be listed in the "Entered by:" or "Dictated by:" lester. 1 of 3 *[facility]* [place] [address] Fax #: [phone] Transthoracic Echocardiogram Patient: Bobby Pedersen : 1960 Study Date: 11/07/2019 Age: 59 Gender: M HR: 87 bpm Height: 72 in /182.9 cm BSA: 2.21 m^2 Weight: 217.5 lb /98.9 kg BMI: 29.6 kg/m^2 *Blanching Machine Operator: * Marleny Peña *Referring Physician: * Yahir Murillo MD *Reading Physician: * Toro Rodriguez MD Indications: Myocardial Infarction (new). History: Atrial fibrillation. PMH: Cardiomyopathy. Risk factors: Hypertension. Conclusions Summary: - Left ventricle: The cavity size is normal. Wall thickness is moderately increased. Systolic function is severely reduced. The estimated ejection fraction is 25%. diffuse hypokinesis with regional variations, motion best in inferolateral wall. - Right ventricle: The cavity size is normal. Systolic function is normal. - Left atrium: The atrium is moderately to severely dilated. - Aorta: The aorta is mildly dilated. There is dilation of the sinus(es) of Valsalva. The aortic root diameter is 4.7 cm. The ascending aorta internal dimension in the A-P direction, maximal systolic dimension is 3.9 cm. - Pulmonary arteries: Systolic pressure is within the normal range, estimated to be 22 mm Hg. Recommendations: Compared to prior study from 06/2019, left ventricular function was previously 45%. This report is only to be considered final once signed by the Provider(s) as displayed in the "<Electronically Signed by >" field (s). Absence of a signature indicates the report is in a draft status and still needs to be finalized. In the event this document was created by someone other than the signing Provider, the individual initiating the document will be listed in the "Entered by:" or "Dictated by:" lester. EKG Data: 11/08/2019; Afib rate 74 with anterolateral TWI most noticeable in lateral leads with associated ST depression c/w prior ECG. 11/05/2019 ECG; Afib rate 86, ST elevation in V1-v3 with new TWI in lead V5-V5. Telemetry; reviewed 11/07-11/08 AFib rate 70-130's. Periods of (130's) occurs with minimal activity. Assessment/Plan #1 s/p Anterior STEMI 11/05/2019 resulted in 3.5x16 mm GÓMEZ to Proximal LAD. He has a known residual 65-70% PDA lesion being medically managed at this time. Troponin peaked at 8.3 11/05/2019. LVEF now 20-25%. fitted for lifevest last night. He is on Plavix 75mg/day in combination with Xarelto 15mg/day per [place] AF trial. right radial access site examined. no hematoma. non tender to palpation. close f/u for next week arranged. #2 ICM; LVEF 20-25%. Compensated on exam. Now on Coreg 25mg PO BID, Lisinopril 40mg/day, Aldactone 50mg/day. Lifevest to be fitted yesterday. We can consider transitioning from ACEI to Entresto outpatient. I am worried he will have in appropriate device output due to periods of AF with RVR thus, he was given IV dig today and will start PO Dig. Lasix stopped due to patient being euvolemic. #3 h/o Perm AF with periods of RVR. Continue Coreg 25mg PO BID. CCB discontinued due to severe LV dysfunction. Will add Dig therapy. Chads Vasc >2 now on Xarelto 15mg/day. #4 h/o Uncontrolled HTN; SBP 178 upon presentation. Currently controlled on higher dose Aldactone. Will continue ACEI and bbocker therapy. He has a known 3.9cm ascending aortic aneurysm. Recommend BP < 120/80 to prevent TTA expansion. #5 h/o HLD; LDL 121. Now on Lipitor 80QHS. Will need repeat FLP/LFT in 6 weeks time given high intensity statin initiation. #6 disposition pending course. Will observe patient on telemetry to ensure rates improve with Dig. Consider discharging later today if RVR improves. Will update Dr. Schaefer Attending: Luis E Schaefer
[2019-11-09 16:56] VITALS: BP 125/73
[2019-11-09] MEDS ORDERED: Digoxin TAB* 0.125 MG PO SCH (17:00)
--- NOTE | 2019-11-10 01:23 | DS ---
CC: Dr. Mead; Dr. Jeremie Ring * DISCHARGE SUMMARY: DATE OF ADMISSION: DATE OF DISCHARGE: 11/09/19 ATTENDING PHYSICIAN: Dr. Luis E Schaefer, Cardiology.* (DICTATED BY SONY LAM NP) PRIMARY PROVIDER: Dr. Mead. PRIMARY GALVANIZER ZINC: Dr. Jeremie Ring. ADMITTING DIAGNOSES: 1. Acute anterior ST-segment elevation myocardial infarction. 2. Known ascending thoracic aneurysm. 3. History of hypertension. 4. History of permanent atrial fibrillation; on Pradaxa, Cardizem, and metoprolol therapy. DISCHARGE DIAGNOSES: 1. Acute anterior ST segment elevation myocardial infarction, resulting in successful drug-eluting stent placement to proximal LAD with known residual 65% to 70% PDA lesion being medically managed at this time. Troponin peaked to 8.3 on 11/05/19. LVEF now fairly reduced at 20% to 25%. The patient will be going home on clopidogrel 75 mg a day in combination with Xarelto 15 mg a day per [place]-AF trial. Followup has been arranged with Dr. Yahir Murillo on 11/16/19. 2. Ischemic cardiomyopathy, LVEF 20% to 25%. The patient is now on carvedilol 25 mg p.o. b.i.d., lisinopril 40 mg a day, Aldactone 50 mg a day. The patient has been fitted for LifeVest. Consideration for transitioning from JENS inhibitor to Entresto will be made outpatient. 3. History of permanent atrial fibrillation with periods of rapid ventricular rate response during hospital stay. The patient's rate responded well to digoxin therapy. Thus, he will go home on Coreg 25 b.i.d. in addition to digoxin 125 mcg a day. He is now on Xarelto 15 mg a day with the CHADS-VASc 2. 4. History of uncontrolled hypertension. Systolic blood pressure was 178 upon presentation, currently normotensive on current medical therapy. PROCEDURES PERFORMED: The patient had a left heart catheterization performed by Dr. Yahir Murillo on 11/05/[address] due to acute [address]-segment elevation myocardial infarction. Per report, a 6-[place] catheter was inserted to the right radial artery. 1. Left main: Fairly short in nature. No significant obstruction noted. 2. LAD: The proximal to mid left anterior descending artery after the takeoff of a very high first posteriorly directed diagonal branch, had a critical hazy 90% lesion. The rest of the LAD had mild 25% to 30% narrowing seen in its mid portion and 25% narrowing seen at the distal portion. 3. Left circumflex: Nondominant vessel, supplying thin first and second obtuse marginal branch with a medium size third obtuse marginal branch followed by 2 smaller obtuse marginal branches with low-lying posterior left ventricular branch of moderate size followed by a very small left posterolateral branch. There was very mild 20% disease noted after the mid moderate size obtuse marginal branch. 4. Right coronary artery: Dominant vessel supplying a PDA and 1 thin posterior left ventricular branch. The proximal portion had mild narrowing noted just after the right coronary turned onto the inferior surface of the heart. There was an area of long diffuse disease with a maximal degree of narrowing noted to be approximately 45% to 50%. Past this point, the proximal portion of the PDA had a 65% to 70% narrowing seen. INTERVENTIONS PERFORMED: The patient underwent successful 3.5 x 16 mm long Synergy drug-eluting stent to the proximal LAD. COMPLICATIONS: None thus far. COURSE OF HOSPITAL STAY: This is a pleasant 59-year-old male patient who follows with Dr. Jeremie Ring of our practice due to notable history of permanent AFib, on Pradaxa therapy, in addition to nonischemic cardiomyopathy, hypertension, and ascending aortic ectasia. The patient presented to [facility] on 11/05/19 due to complaints of exertional chest pain while lifting 2 bags of pallets. This occurred on 11/03/19. Two days later on 11/05/19, he developed a severe spell of chest heaviness with associated left arm discomfort, nausea, and vomiting. He initially presented to his relatives' house; however, they decided to call 911. En route to [facility], his initial EKG revealed mild ST-segment changes, but not completely definitive for a STEMI alert. He did have a repeat EKG en route that demonstrated further ST-segment elevation in the early precordial leads and more prominent in aVL with reciprocal changes, thus STEMI alert was called. The patient was seen emergently in the emergency room by Dr. Yahir Murillo and was taken to the laborer beam house where he underwent successful drug- eluting stent placement to his proximal LAD. His troponin peaked at 8.39 on 11/05/19. Due to history of AFib on anticoagulant therapy, he was transitioned to Xarelto 15 mg a day and was initially on aspirin 81 mg a day in combination with Brilinta 90 mg p.o. b.i.d. A decision was made per [place]-AF trial to transition the patient to Plavix 75 mg a day in combination with Xarelto 15 mg a day. He was given a 600 mg loading dose of clopidogrel and has been on Plavix 75 mg a day thereafter. He denies any recurrent complaints of chest pain. Throughout his hospital stay, his blood pressure and ventricular rates have been difficult to control. He has been normotensive since his Aldactone was increased to 50 mg a day. This morning, it was noted on telemetry that he was having AFib with RVR, rates into the 130s with minimal activity such as walking. He was given 125 mcg of IV digoxin. This afternoon, the patient was ambulated personally by Dr. Luis E Schaefer, highest ventricular rate was 80 beats per minute, thus he is stable for discharge. His echocardiogram was updated during his hospital stay. LVEF was 20% to 25%. His aortic root diameter is 4.7 cm. The patient was fitted for LifeVest yesterday 11/08/19. There was concern for inappropriate device output due to AFib with at times rapid ventricular rate response with minimal activity. As mentioned before, he has been started on digoxin therapy and is responding well. His right radial access site was examined; there is no evidence of hematoma. The patient has 3+ radial pulses noted. Most recent set of vital signs: Temperature was 97.4, pulse 73, respirations 20 , oxygenation 98% on room air, blood pressure 117/85. This morning's blood work was reviewed, 11/09/19: Sodium 137, potassium 3.5, BUN 30, creatinine 1.05. His LDL during his stay was updated and it was 121. The patient is to be discharged home at this current time. FOLLOWUP APPOINTMENT: 1. The patient is to see Dr. Mead, PCP in 7 to [address] Yahir Murillo, Cardiology on 11/16/19 at 3:40 p.m. The patient is aware to bring all his medication bottles with him. 3. Dr. Jeremie Ring on 12/10/19. Please note that I have asked our office teacher education director to determine if the patient could be seen by Dr. Jeremie Ring prior to that due to known residual PDA lesion. Outpatient blood work to be obtained. The patient will need a BMP on 11/15/19, outpatient order has been placed by myself. At that time, we will update digoxin level as well. ACTIVITY RESTRICTIONS: The patient is aware to not drive for at least 7 days. We will address a followup appointment on 11/16/19. He is aware to avoid lifting more than 5 to 10 pounds until further directed. He is aware that he may shower, but not soak right radial access site. DISCHARGE MEDICATIONS: 1. Plavix 75 mg a day. 2. Lipitor 80 mg p.o. q.h.s. 3. Coreg 25 mg p.o. b.i.d. 4. Digoxin 0.125 mg p.o. daily. 5. Lisinopril 40 mg a day. 6. Pantoprazole 40 mg a day. 7. Xarelto 15 mg p.o. daily with breakfast. 8. Aldactone 50 mg a day. DISPOSITION: To be discharged home in stable condition. Dr. Luis E Schaefer has personally seen and examined the patient who agrees with the above assessment and plan. SONY LAM NP [id number]/[facility] #: [id number] AUTUMN
== END 2019-11-09 16:45 | disposition home or self-care (01) | DRG 174 ==
LOC: ED 11:21 → CHICATH 11:28 → ICU 13:19 → MEDTELE 11-08 14:03
PROVIDERS: ADMIT Internal Medicine Cardiovascular Disease; ATTEND Internal Medicine Cardiovascular Disease
PROC: 4A023N7 Measurement of Cardiac Sampling and Pressure, Left Heart, Percutaneous Approach (ICD-10-PCS; 2019-11-05)
PROC: B2111ZZ Fluoroscopy of Multiple Coronary Arteries using Low Osmolar Contrast (ICD-10-PCS; 2019-11-05)
PROC: B2151ZZ Fluoroscopy of Left Heart using Low Osmolar Contrast (ICD-10-PCS; 2019-11-05)
PROC: 027034Z Dilation of Coronary Artery, One Artery with Drug-eluting Intraluminal Device, Percutaneous Approach (ICD-10-PCS; principal; 2019-11-05 11:30)
DX: I21.09 ST elevation (STEMI) myocardial infarction involving other coronary artery of anterior wall (principal); I48.21 Permanent atrial fibrillation; I71.2 Thoracic aortic aneurysm, without rupture; I10 Essential (primary) hypertension; E78.5 Hyperlipidemia, unspecified; E78.00 Pure hypercholesterolemia, unspecified; I25.10 Atherosclerotic heart disease of native coronary artery without angina pectoris; I25.5 Ischemic cardiomyopathy; Z79.02 Long term (current) use of antithrombotics/antiplatelets; Z79.899 Other long term (current) drug therapy; Z79.01 Long term (current) use of anticoagulants
CPT/HCPCS: 36415; 80048; 80053; 80061; 82550; 82553; 83721; 83874; 83880; 84484; 85025; 85027; 85610; 85730; 86850; 86900; 86901; 87641; 93005; 93306; 99283; A9270-GY; C1725; C1769; C1876; C1887; C9606-LD; J0583; J1160; J1644; J2250; J3010

== ENCOUNTER 2020-12-20 14:41 | Observation (INO) ==
[2020-12-20 14:59] LABS: ABS Basophils 0.1 10^3/ul (0-0.2); ABS Eosinophils 0.2 10^3/ul (0-0.6); ABS Monocytes 0.6 10^3/ul (0-0.8); ABS Neutrophils 3.9 10^3/ul (1.5-7.7); Eosinophil % 4.1 %; Hematocrit 43 % (42-52); Hemoglobin 14.8 g/dL (14.0-18.0); Lymphocyte % 17.1 %; Mean Corpuscular HGB Conc 34 g/dL (31-36); Mean Corpuscular Hemoglobin 31 pg (27-31); Mean Corpuscular Volume 91 fL (80-94); Mean Platelet Volume 7.7 fL (7.4-10.4); Platelet Count 201 10^3/uL (150-450); Red Blood Count 4.76 10^6 /uL (4.18-5.48); Red Cell Distribution Width 14 % (10-15); White Blood Count 5.8 10^3/uL (3.5-10.8)
[2020-12-20] MEDS ORDERED: Metoprolol Tartrate 5 mg VIAL 5 ml VIAL (1 mg/ml) IV ONE (14:59)
[2020-12-20] MEDS ORDERED: NS 0.9% 1000 ml BAG 1,000 ML IV SCH (15:00)
[2020-12-20 15:06] LABS: INR 1.11 (0.82-1.09)
[2020-12-20 15:15] LABS: ALT 29 U/L (7-52); AST 21 U/L (13-39); Albumin 4.6 g/dL (3.2-5.2); Albumin/Globulin Ratio 1.8 (1-3); Alkaline Phosphatase 61 U/L (34-104); Anion Gap 8 mmol/L (2-11); BUN/Creatinine Ratio 13.5 (8-20); Blood Urea Nitrogen 22 mg/dL (6-24); CO2 Carbon Dioxide 25 mmol/L (22-32); Calcium 9.8 mg/dL (8.6-10.3); Chloride 107 mmol/L (101-111); EGFR African American 52.5 (>60); EGFR Non-African American 43.4 (>60); Globulin 2.6 g/dL (2-4); Glucose 94 mg/dL (70-100); Potassium 4.1 mmol/L (3.5-5.0); Sodium 140 mmol/L (135-145); Total Protein 7.2 g/dL (6.4-8.9)
[2020-12-20 15:26] LABS: Troponin I 0.05 ng/mL (<0.03)
[2020-12-20 17:01] LABS: Creatine Kinase 77 U/L (10-223)
[2020-12-20 17:06] LABS: Activated Partial Thrombo Time 31.7 seconds (26.0-38.0); CKMB ng/mL 2.6 ng/mL (0.6-6.3)
[2020-12-20] MEDS ORDERED: Metoprolol Tartrate 5 mg VIAL 5 ml VIAL (1 mg/ml) IV PRN (17:57)
[2020-12-20 17:58] LABS: TSH Ultra Thyroid Stim Horm 1.02 mcIU/mL (0.34-5.60)
[2020-12-20 18:09] LABS: Troponin I 0.13 ng/mL (<0.03)
[2020-12-20 20:55] LABS: Troponin I 0.34 ng/mL (<0.03)
[2020-12-20] MEDS: Potassium Chlor 20 meq TAB.ER PO SCH (21:37)
[2020-12-21 06:42] LABS: BUN/Creatinine Ratio 24.7 (8-20); Blood Urea Nitrogen 20 mg/dL (6-24); CO2 Carbon Dioxide 24 mmol/L (22-32); Calcium 8.9 mg/dL (8.6-10.3); Chloride 110 mmol/L (101-111); EGFR African American 117.6 (>60); EGFR Non-African American 97.2 (>60); Glucose 90 mg/dL (70-100); Sodium 139 mmol/L (135-145)
[2020-12-21 07:03] LABS: Anion Gap 5 mmol/L (2-11)
[2020-12-21] MEDS: Potassium Chlor 20 meq TAB.ER PO SCH (08:21)
[2020-12-21] MEDS ORDERED: Aspirin EC 81 mg TAB.EC (enteric coated) PO SCH (09:00)
[2020-12-21 11:37] VITALS: BP 123/80
[2020-12-21 14:33] LABS: Digoxin 0.7 ng/ml (0.8-2.0)
== END 2020-12-21 15:15 | disposition home or self-care (01) ==
LOC: MEDTELE 14:41 → ED 14:41 → MEDTELE 20:02
PROVIDERS: ADMIT Internal Medicine; ATTEND Hospitalist

== ENCOUNTER 2022-08-09 21:53 | Observation (INO) ==
[2022-08-09 22:33] LABS: ABS Eosinophils 0.1 10^3/ul (0-0.6); ABS Lymphocytes 0.6 10^3/ul (1.0-4.8); ABS Monocytes 0.5 10^3/ul (0-0.8); ABS Neutrophils 4.6 10^3/ul (1.5-7.7); Eosinophil % 2.5 %; Hematocrit 43 % (42-52); Hemoglobin 14.2 g/dL (14.0-18.0); Mean Corpuscular HGB Conc 33 g/dL (31-36); Mean Corpuscular Hemoglobin 30 pg (27-31); Mean Corpuscular Volume 90 fL (80-94); Mean Platelet Volume 7.9 fL (7.4-10.4); Nucleated Red Blood Cells % 0.1; Platelet Count 188 10^3/uL (150-450); Red Blood Count 4.81 10^6 /uL (4.18-5.48); Red Cell Distribution Width 14 % (10-15); White Blood Count 5.9 10^3/uL (3.5-10.8)
[2022-08-09 22:45] LABS: INR 1.25 (0.89-1.11)
[2022-08-09 22:57] LABS: Albumin 4.3 g/dL (3.2-5.2); Albumin/Globulin Ratio 1.9 (1-3); Calcium 9.5 mg/dL (8.6-10.3); Globulin 2.3 g/dL (2-4); Potassium 4.5 mmol/L (3.5-5.0); Total Bilirubin 0.5 mg/dL (0.2-1.0); Total Protein 6.6 g/dL (6.4-8.9); eGFR CKD-EPI 47.6 (>60)
[2022-08-10 00:33] LABS: Digoxin 0.3 ng/ml (0.8-2.0)
[2022-08-10] MEDS ORDERED: NS 0.9% 500 ml BAG 500 ML IV ONE (00:43)
[2022-08-10] MEDS ORDERED: Digoxin IV 0.5 MG/2 ML AMP (0.25 MG/ML) IV SLOW PU ONE (00:43)
[2022-08-10 01:00] LABS: High Sensitivity Troponin 1 Hr 42 pg/mL (<20)
[2022-08-10] MEDS ORDERED: Potassium Chlor 20 meq TAB.ER PO SCH (09:00)
[2022-08-10] MEDS ORDERED: Aspirin EC 81 mg TAB.EC (enteric coated) PO SCH (09:00)
[2022-08-10 09:01] LABS: Calcium 8.9 mg/dL (8.6-10.3); Magnesium 1.9 mg/dL (1.9-2.7); Potassium 4.5 mmol/L (3.5-5.0); eGFR CKD-EPI 79.8 (>60)
[2022-08-10 11:57] VITALS: BP 129/72
== END 2022-08-10 13:00 | disposition home or self-care (01) ==
LOC: ED 21:53 → EDHOLD 21:53 → SUATTDRO 08-10 00:27 → MEDTELE 08-10 03:25
PROVIDERS: ADMIT Student in an Organized Health Care Education/Training Program; ATTEND Internal Medicine